=== PATIENT | female | born 1955 | race Caucasian/White ===

== ENCOUNTER 2018-06-23 11:03 | Emergency (ER) | payer OTHER ==
[~2018-06-23] VITALS: Ht 162.6 cm; Wt 55.3 kg
[~2018-06-23 11:03] MED LIST: ALBU17AE23 IH; BENZ100C18 PO; BUDE6HFA IH; DEXL60CA5 PO; DOXY100C2 PO; GABA-486 PO; GFN600TCR PO; HYDR480S10 GT; IBUP-16 PO; LEVO500T69 PO; LORA-405 PO; LORA0.5T PO; LRZ1T PO; METH4TAB PO; METO-354 PO; MTR500T PO; NAPR-243 PO; NF-ESOM40C PO; NF-XOP-HFA IH; OMEP20CA12 PO; ONDA8TAB6 PO; OXYC1TAB87 PO; PHEN37.555 PO; POLY119P PO; POLY17PO6 PO; PRD10T PO; PRD50T PO; RANI150T46 PO; SCR1T1 PO; SUCR1TAB PO; SUCR1TAB36 PO; TRM50T PO; ZOLP10TA5 PO
--- NOTE | 2018-06-23 11:29 | ED Respiratory ---
General Chief Complaint: Respiratory Problems Stated Complaint: SOA Nursing Triage Note: PT ARRIVED TO ED POV ET WAS ESCORTED BY W/C TO BED 2. PT STATES SHE HAS BEEN SOB ET HAS RECENTLY COMPLETED A LEVAQUIN RX BUT IS NOT GETTING BETTER. PT UNABLE TO WALK FROM CAR TO BUILDING WITHOUT HAVING A DIFFICULT TIME BREATHING. PT NOT IN DISTRESS AT THIS TIME Source: patient Exam Limitations: no limitations History of Present Illness Date Seen by Provider: Jun 23, 2018 Time Seen by Provider: 11:20 Initial Comments 62-year-old female who presents to the emergency room with complaints of increasing shortness of breath for the past 2 weeks. She states that laying May she started to have a viral respiratory illness has continued to progress. She reports she has been on prednisone, Ventolin inhaler, azithromycin over the course of treatment and most recently just finished a Levaquin prescription but has had no improvement. She reports worsening shortness of breath with exertion. She denies any fevers, chest pain, nausea, vomiting. She is not in any distress at this time. She reports that for the last 2 nights she has worn a friend's oxygen concentrator and seemed to have helped. She is a current smoker. Timing/Duration: getting worse, changing over time Modifying Factors: Improves With Albuterol Inhaler, Improves With Oxygen Associated Symptoms: No chest pain/soreness; cough, nasal congestion, shortness of breath Allergies and Home Medications Allergies Coded Allergies: No Known Drug Allergies (Unverified , 02/23/10) Home Medications Albuterol 17 Gm Aerosol, 2 PUFF IH Q4H PRN for SHORTNESS OF BREATH, (Reported) Lorazepam 1 Mg Tablet, 1 MG PO HS, (Reported) Patient Home Medication List Home Medication List Reviewed: Yes Review of Systems Review of Systems Constitutional: no symptoms reported, see HPI Respiratory: see HPI, cough, short of breath, wheezing All Other Systems Reviewed Negative Unless Noted: Yes Past Shyfwjx-Wshbps-Jiyvvu Hx Past Med/Social Hx: Reviewed Nursing Past Med/Soc Hx Patient Social History Alcohol Use: Denies Use Recreational Drug Use: No Smoking Status: Current Everyday Smoker Recent Foreign Travel: No Contact w/Someone Who Travel: No Recent Infectious Disease Expo: No Recent Hopitalizations: Yes (1983) Physical Abuse: No Sexual Abuse: No Mistreated: No Fear: No Immunizations Up To Date Tetanus Booster (TDap): Unknown PED Vaccines UTD: No Date of Pneumonia Vaccine: Apr 23, 2013 Date of Influenza Vaccine: Feb 02, 2015 Past Medical History Surgeries: Yes (EGD/COLONOSCOPY, WISDOM TEETH &TOP TEETH REMOVED. 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 6.0oz. [id number]; BMI Method:Stated General Appearance: WD/WN, no apparent distress HEENT: PERRL/EOMI, normal ENT inspection, TMs normal, pharynx normal Neck: non-tender, full range of motion, supple, normal inspection, carotid bruit Respiratory: chest non-tender, no respiratory distress, no accessory muscle use , wheezing (right lower lobe wheezing.) Cardiovascular: normal peripheral pulses, regular rate, rhythm, no edema, no gallop, no JVD, no murmur Gastrointestinal: normal bowel sounds, non tender, soft, no organomegaly, no pulsatile mass Extremities: normal range of motion, non-tender, normal inspection, no pedal edema, no calf tenderness, normal capillary refill Neurologic/Psychiatric: alert, normal mood/affect, oriented x 3 Skin: normal color, warm/dry Focused Exam Lactate Level 06/23/18 11:30: Lactic Acid Level 1.16 Lactic Acid Level Laboratory Tests Test 06/23/18 11:30 Lactic Acid Level 1.16 MMOL/L (0.50-2.00) Progress/Results/Core Measures Suspected Sepsis Recent Fever Within 48 Hours: No Infection Criteria Present: Suspected New Infection New/Unexplained Altered Menta: No Sepsis Screen: No Definite Risk SIRS Temperature: Pulse: 87 Respiratory Rate: 22 Laboratory Tests 06/23/18 11:30: White Blood Count 6.3 Blood Pressure 187 /70 Mean: 109 06/23/18 11:30: Lactic Acid Level 1.16 Laboratory Tests 06/23/18 11:30: Creatinine 0.60, Platelet Count 263, Total Bilirubin 0.5 Results/Orders Lab Results Laboratory Tests Test 06/23/18 11:30 Range/Units White Blood Count 6.3 4.3-11.0 10^3/uL Red Blood Count 4.70 4.35-5.85 10^6/uL Hemoglobin 14.2 11.5-16.0 G/DL Hematocrit 42 35-52 % Mean Corpuscular Volume 89 80-99 FL Mean Corpuscular Hemoglobin 30 25-34 PG Mean Corpuscular Hemoglobin Concent 34 32-36 G/DL Red Cell Distribution Width 12.6 10.0-14.5 % Platelet Count 263 130-400 10^3/uL Mean Platelet Volume 9.0 7.4-10.4 FL Neutrophils (%) (Auto) 52 42-75 % Lymphocytes (%) (Auto) 23 12-44 % Monocytes (%) (Auto) 9 0-12 % Eosinophils (%) (Auto) 16 H 0-10 % Basophils (%) (Auto) 0 0-10 % Neutrophils # (Auto) 3.3 1.8-7.8 X 10^3 Lymphocytes # (Auto) 1.5 1.0-4.0 X 10^3 Monocytes # (Auto) 0.6 0.0-1.0 X 10^3 Eosinophils # (Auto) 1.0 H 0.0-0.3 10^3/uL Basophils # (Auto) 0.0 0.0-0.1 10^3/uL Neutrophils % (Manual) 49 % Lymphocytes % (Manual) 28 % Monocytes % (Manual) 1 % Eosinophils % (Manual) 18 % Band Neutrophils 1 % Hypersegmented Neutrophils MODERATE Blood Morphology Comment NORMAL D-Dimer 0.30 0.00-0.49 UG/ML Sodium Level 139 135-145 MMOL/L Potassium Level 4.4 3.6-5.0 MMOL/L Chloride Level 105 98-107 MMOL/L Carbon Dioxide Level 23 21-32 MMOL/L Anion Gap 11 5-14 MMOL/L Blood Urea Nitrogen 11 7-18 MG/DL Creatinine 0.60 0.60-1.30 MG/DL Estimat Glomerular Filtration Rate > 60 BUN/Creatinine Ratio 18 Glucose Level 96 70-105 MG/DL Lactic Acid Level 1.16 0.50-2.00 MMOL/L Calcium Level 9.8 8.5-10.1 MG/DL Corrected Calcium 9.6 8.5-10.1 MG/DL Total Bilirubin 0.5 0.1-1.0 MG/DL Aspartate Amino Transf (AST/SGOT) 19 5-34 U/L Alanine Aminotransferase (ALT/SGPT) 15 0-55 U/L Alkaline Phosphatase 96 40-136 U/L B-Type Natriuretic Peptide 26.5 <100.0 PG/ML Total Protein 6.6 6.4-8.2 GM/DL Albumin 4.2 3.2-4.5 GM/DL My Orders Orders - JOYA LO Cbc With Automated Diff (06/23/18 11:22) Comprehensive Metabolic Panel (06/23/18 11:22) BNP (06/23/18 11:22) Blood Culture (06/23/18 11:22) Albuterol/Ipra Inhalation Soln (Duoneb I (06/23/18 11:30) Fibrin Degradation Products (06/23/18 11:22) Chest Pa/Lat (2 View) (06/23/18 11:22) Ekg Tracing (06/23/18 11:22) O2 (06/23/18 11:22) Saline Lock/Iv-Start (06/23/18 11:22) Monitor-Rhythm Ecg Trace Only (06/23/18 11:22) Svn Small Volume Nebulizer (06/23/18 11:22) Lactic Acid Analyzer (06/23/18 11:22) Manual Differential (06/23/18 11:30) Albuterol Pre-Mix Nebs (Rt) (Proventil (06/23/18 12:00) Svn Small Volume Nebulizer (06/23/18 11:49) Ipratropium 0.02% Neb Solution (Atrovent (06/23/18 12:00) Svn Small Volume Nebulizer (06/23/18 11:49) Ipratropium 0.02% Neb Solution (Atrovent (06/23/18 11:46) Albuterol Pre-Mix Nebs (Rt) (Proventil (06/23/18 11:46) Promethazine/ Codeine Syrup (Phenergan W (06/23/18 13:00) Medications Given in ED Current Medications Medications Dose Ordered Sig/Katie Route Start Time Stop Time Status Last Admin Dose Admin Albuterol/ Ipratropium 3 ml ONCE ONCE INH 06/23/18 11:30 06/23/18 11:31 DC 06/23/18 11:36 3 ML Ipratropium [place] 0.5 mg STK-MED ONCE IH 06/23/18 11:46 06/23/18 11:51 DC 06/23/18 11:56 0.5 MG Promethazine HCl/ Codeine 5 ml ONCE ONCE PO 06/23/18 13:00 06/23/18 13:01 DC 06/23/18 13:02 5 ML Vital Signs/I&O 06/23/18 06/23/18 06/23/18 11:05 11:36 11:57 Pulse 87 Resp 22 B/P (MAP) 187/70 (109) Pulse Ox 92 95 O2 Delivery Room Air Room Air Room Air Capillary Refill : Less Than 3 Seconds Blood Pressure Mean: 109 Progress Note : Time: 11:48 Progress Note I have seen and evaluated the patient. After initial breathing treatment she developed wheezing throughout all lung jimenez. Hour-long breathing treatment was ordered. Departure Impression Primary Impression: Bronchiolitis Disposition: HOME, SELF-CARE Condition: Stable/Unchanged Departure-Patient Inst. Decision time for Depature: 13:58 Referrals: JO AGUIRRE MD (PCP/Family) Primary Care Physician Patient Instructions: Acute Bronchitis, Adult (DC) Add. Discharge Instructions: Take medications as directed. Follow-up with Dr. Aguirre within 1 week for recheck. Call tomorrow morning for an appointment time. Return back to the emergency room for worsening symptoms or concerns as needed. All discharge instructions reviewed with patient and/or family. Voiced understanding. Scripts Prednisone (Prednisone) 20 Mg Tab 40 MG PO DAILY for 5 Days, #10 TAB Prov: JOYA LO 06/23/18 Albuterol Sulfate (Albuterol Sulfate) 1.25 Mg/3 Ml Vial.neb 1.25 MG INH Q4H PRN for SHORTNESS OF BREATH, #20 EACH Prov: JOYA LO 06/23/18 JOYA LO Jun 23, 2018 11:29
[2018-06-23] MEDS ORDERED: RT-ALBUTEROL/IPRATROPIUM 3 ML (DUONEB) VIAL INH ONE (11:30)
[2018-06-23 11:42] LABS: BASOPHILS % (AUTO) 0 % (0-10); EOSINOPHILS % (AUTO) 16 % (0-10); HEMATOCRIT 42 % (35-52); HEMOGLOBIN 14.2 G/DL (11.5-16.0); LYMPHOCYTES # (AUTO) 1.5 X 10^3 (1.0-4.0); LYMPHOCYTES % (AUTO) 23 % (12-44); MEAN CORPUSCULAR HEMOGLOBIN 30 PG (25-34); MEAN CORPUSCULAR HGB CONC 34 G/DL (32-36); MEAN CORPUSCULAR VOLUME 89 FL (80-99); MONOCYTES # (AUTO) 0.6 X 10^3 (0.0-1.0); MONOCYTES % (AUTO) 9 % (0-12); NEUTROPHILS # (AUTO) 3.3 X 10^3 (1.8-7.8); NEUTROPHILS % (AUTO) 52 % (42-75); PLATELET COUNT 263 10^3/uL (130-400); RED CELL DISTRIBUTION WIDTH 12.6 % (10.0-14.5); WHITE BLOOD COUNT 6.3 10^3/uL (4.3-11.0)
[2018-06-23] MEDS ORDERED: RT-IPRATROPIUM (ATROVENT) 0.5MG/2.5ML AMP IH ONE ×2 (11:46→12:00)
[2018-06-23] MEDS ORDERED: RT-ALBUTEROL SULF 2.5 MG/3 ML PRE-MIX VIAL ONE (11:46)
[2018-06-23] MEDS ORDERED: RT-ALBUTEROL SULF 2.5 MG/3 ML PRE-MIX VIAL INH SCH (12:00)
[2018-06-23 12:04] LABS: ALANINE AMINOTRANSFERASE 15 U/L (0-55); ALBUMIN 4.2 GM/DL (3.2-4.5); ALKALINE PHOSPHATASE 96 U/L (40-136); BILIRUBIN,TOTAL 0.5 MG/DL (0.1-1.0); BUN/CREATININE RATIO 18; CALCIUM 9.8 MG/DL (8.5-10.1); CARBON DIOXIDE 23 MMOL/L (21-32); CHLORIDE 105 MMOL/L (98-107); GFR ESTIMATED > 60; GLUCOSE 96 MG/DL (70-105); POTASSIUM 4.4 MMOL/L (3.6-5.0); SODIUM 139 MMOL/L (135-145); TOTAL PROTEIN 6.6 GM/DL (6.4-8.2)
[2018-06-23 12:24] LABS: BAND NEUTROPHILS 1 %; EOSINOPHILS % (MANUAL) 18 %; HYPERSEGMENTED NEUT MODERATE; LYMPHOCYTES % (MANUAL) 28 %; MONOCYTES % (MANUAL) 1 %; NEUTROPHILS % (MANUAL) 49 %; RBC MORPH NORMAL
[2018-06-23] MEDS ORDERED: PROMETHAZINE/ CODEINE SYRUP 5 ML UDC PO ONE (13:00)
--- NOTE | 2018-06-23 13:23 | Diagnostic Imaging Report ---
EXAMINATION: Chest, PA and lateral views INDICATION: Cough, chest tightness, and shortness of breath. COMPARISON: Multiple priors, most recently performed on 10/24/2014. FINDINGS: The lungs are clear and the pulmonary vasculature is normal. No pneumothorax or pleural effusion. The cardio mediastinal silhouette is normal. No acute osseous abnormality. Bone anchors are demonstrated in the left humeral head. IMPRESSION: No acute chest disease. No significant change from prior. Dictated by: Dictated on workstation # [id number]
[2018-06-23] MEDS ORDERED: ALBU1.25 INH (14:01)
[2018-06-23] MEDS ORDERED: PRD20T PO (14:01)
[2018-06-23 14:07] VITALS: BP 159/87
== END 2018-06-23 14:08 | disposition home or self-care (01) ==
LOC: EDUNIT# 11:03 → ER 11:05
DX: J44.0 Chronic obstructive pulmonary disease with (acute) lower respiratory infection (principal); J21.9 Acute bronchiolitis, unspecified; F17.200 Nicotine dependence, unspecified, uncomplicated; F41.9 Anxiety disorder, unspecified; Z85.828 Personal history of other malignant neoplasm of skin; Z87.01 Personal history of pneumonia (recurrent); Z79.51 Long term (current) use of inhaled steroids; Z90.49 Acquired absence of other specified parts of digestive tract; Z90.710 Acquired absence of both cervix and uterus; Z90.89 Acquired absence of other organs; Z98.51 Tubal ligation status; Z86.718 Personal history of other venous thrombosis and embolism; Z80.3 Family history of malignant neoplasm of breast
CPT/HCPCS: 36415; 71046; 80053; 83605; 83880; 85007; 85027; 85379; 87040; 93005; 94640

== ENCOUNTER 2018-07-08 07:42 | Emergency (ER) | payer OTHER ==
[~2018-07-08] VITALS: Ht 162.6 cm; Wt 55.5 kg
[~2018-07-08 07:42] MED LIST changes: +ALBU1.25 INH; +PRD20T PO
--- OUTSIDE RECORDS SUMMARY | 2018-07-08 07:47 | XMS REPORT ---
Author Author JO CHANDRA Organization [facility] [place] Address [address] [place] [address] Care Team Providers Care Client Solutions Manager Name Role Phone JO CHANDRA Unavailable PROBLEMS Type Condition ICD9-CM Code [id number] Code Onset Dates Condition Status SNOMED Code Problem Anxiety F41.9 Active 96706368 Problem Hypoglycemia E16.2 Active 038562143 Problem Low blood sugar in diabetes E11.649 Active 483045186 ALLERGIES No Information ENCOUNTERS Encounter Location Date Diagnosis [place] [id number] [place] [address] Mar, [facility] [place] [address] [address] Mar, Anxiety F41.9 [facility] [place] [id number] [place] [address] Jan, Anxiety F41.9 [place] [id number] [place] [address] Dec, Hypoglycemia E16.2 and Anxiety F41.9 [facility] [place] [id number] [place] [address] Nov, Anxiety F41.9 [facility] [place] [id number] [place] [address] Oct, Anxiety F41.9 [facility] [place] [id number] [place] [address] Aug, Anxiety F41.9 [facility] [place] [id number] [place] [address] 14 Jun, 2017 Acute right hip pain M25.551 [facility] [place] [id number] [address] 14 Jun, 2017 Acute right hip pain M25.551 [facility] [place] [id number] [address] 10 May, 2017 Anxiety F41.9 and Hypoglycemia E16.2 [facility] [place] [id number] [address] Apr, [facility] [place] [id number] [address] Mar, [facility] [place] [id number] [address] Mar, [facility] [place] [address] [address] Mar, [facility] [place] [id number] [address] Mar, Screening for breast cancer Z12.31 [facility] [place] [id number] [address] Feb, [facility] [place] [id number], [place] [address] Feb, [facility] [place] [id number], [place] [address] Feb, [facility] [place] [id number] [address] Dec, [facility] [place] [id number], [place] [address] Dec, Hypoglycemia E16.2 [facility] [place] [id number] [address] Dec, Hypoglycemia E16.2 [facility] [place] [id number], [place] [address] Dec, [facility] [place] [id number], [place] [address] Nov, [facility] [place] [id number] [address] Nov, [facility] [place] [id number] [address] Nov, [facility] [place] [id number] [address] Oct, [facility] [place] [id number] [address] September, [facility] [place] [id number] [address] September, [facility] [place] [id number] [address] September, Hypoglycemia E16.2 and Weight loss R63.4 [facility] [place] [id number] [address] Aug, [facility] [place] [id number] [address] Jul, [facility] [place] [id number] [address] Jun, [facility] [place] [id number] [address] Jun, Hypoglycemia E16.2 [facility] [place] [id number] [address] May, [facility] [place] [id number] [address] May, [facility] [address] [place] [address] Apr, [facility] [place] [id number] [address] Apr, [facility] [place] [id number] [address] Mar, [facility] [place] [address] [facility] [id number] [address] Mar, Dizziness R42 and Low blood sugar E16.2 [facility] [place] [id number] [address] Mar, [facility] [place] [id number] [address] Mar, Dizziness R42 [facility] [place] [id number], [place] [address] Mar, Dizziness R42 and Low blood sugar E16.2 IMMUNIZATIONS No Known Immunizations SOCIAL HISTORY Never Assessed REASON FOR VISIT Controlled Med Refill PLAN OF CARE VITAL SIGNS MEDICATIONS Medication Instructions Dosage Frequency Start Date End Date Duration Status Ativan 1 MG Orally Once a day 1 tablet at bedtime as needed 24h 28 days Active RESULTS No Results PROCEDURES No Known procedures INSTRUCTIONS MEDICATIONS ADMINISTERED No Known Medications MEDICAL (GENERAL) HISTORY Type Description Date Medical History spastic colon Medical History Anxiety Surgical History Hysterectomy at 29 years of age Surgical History oopherectomy 2001 Surgical History shoulder surgery 2005 Surgical History Hiatal Hernia 2016 Surgical History cholecystectomy 2016 Surgical History Tubal ligation Hospitalization History with child and surgeries listed above. Hospitalization History Hernia issues
--- OUTSIDE RECORDS SUMMARY | 2018-07-08 07:47 | XMS REPORT ---
Author Author JO CHANDRA Organization [facility] Address [address] [place] [address] Care Team Providers Care Resin Filterer Name Role Phone JO CHANDRA Unavailable PROBLEMS Type Condition ICD9-CM Code ZVU18-HP Code Onset Dates Condition Status SNOMED Code Problem Anxiety F41.9 Active 89366914 Problem Hypoglycemia E16.2 Active 917120491 Problem Low blood sugar in diabetes E11.649 Active 882196134 ALLERGIES No Information ENCOUNTERS Encounter Location Date Diagnosis [place] [id number] [place] [address] Mar, [facility] [address] [address] Mar, Anxiety F41.9 [facility] [id number] [place] [address]- [address] Jan, Anxiety F41.9 [place] [id number] [place] [address]- [address] Dec, Hypoglycemia E16.2 and Anxiety F41.9 [facility] [id number] [place] [address]- [address] Nov, Anxiety F41.9 [facility] [id number] [place] [address]- [address] Oct, Anxiety F41.9 [facility] [id number] [place] [address]- [address] Aug, Anxiety F41.9 [facility] [id number] [place] [address]- [address] 14 Jun, 2017 Acute right hip pain M25.551 [facility] [id number] [address] 14 Jun, 2017 Acute right hip pain M25.551 [facility] [id number] [place] [address]- [address] 10 May, 2017 Anxiety F41.9 and Hypoglycemia E16.2 [facility] [id number] [place] [address]- [address] Apr, [facility] [address], [place] [address]- [address] Mar, [facility] [id number] [place] [address]- 39[address] Mar, [facility] [address], [place] [address]- [address] Mar, [facility] [address], [place] [address]- [address] Mar, Screening for breast cancer Z12.31 [facility] [address], [place] [address]- [address] Feb, [facility] [address], [place] [address]- 79[address] Feb, [facility] [address], [place] [address]- [address] Feb, [facility] [address], [place] [address]- [address] Dec, [facility] [address], [place] [address]- 84[address] Dec, Hypoglycemia E16.2 [facility] [address], [place] [address]- 8[address] Dec, Hypoglycemia E16.2 [facility] [address], [place] [address]- [address] Dec, [facility] [address], [place] [address]- [address] Nov, [facility] [id number] [place] [address]- [address] Nov, [facility] [id number] [place] [address]- 16[address] Nov, [facility] [id number] [place] [address]- 384[address] Oct, [facility] [id number] [place] [address]- 6[address] September, [facility] [id number] [place] [address]- [address] September, [facility] [id number] [place] [address]- 8070 September, Hypoglycemia E16.2 and Weight loss R63.4 [facility] [id number] [place] [address]- [address] Aug, [facility] [id number] [place] [address]- 9[address] Jul, [facility] [id number] [place] [address]- 8598 Jun, [facility] [id number] [place] [address]- 8[address] Jun, Hypoglycemia E16.2 [facility] [id number] [place] [address]- 125[address] May, [facility] [id number] [place] [address]- [address] May, [facility] [address] [place] [address] Apr, [facility] [id number] [place] [address]- [address] Apr, [facility] [id number], [place] [address]- [address] Mar, [facility] [address] [facility] [id number] [address] Mar, Dizziness R42 and Low blood sugar E16.2 [facility] [id number], [place] [address]- [address] Mar, [facility] [id number] [address]- [address] Mar, Dizziness R42 [facility] [address], [place] [address]- [address] Mar, Dizziness R42 and Low blood sugar E16.2 IMMUNIZATIONS No Known Immunizations SOCIAL HISTORY Never Assessed REASON FOR VISIT Medication refill request PLAN OF CARE VITAL SIGNS MEDICATIONS Unknown Medications RESULTS No Results PROCEDURES No Known procedures [...]
--- OUTSIDE RECORDS SUMMARY | 2018-07-08 07:47 | XMS REPORT ---
Author Author JO CHANDRA Organization [facility] [place] Address [address] [place] [address] Care Team Providers Care Cut In Worker Name Role Phone JO CHANDRA Unavailable PROBLEMS Type Condition ICD9-CM Code GSR87-WF Code Onset Dates Condition Status SNOMED Code Problem Anxiety F41.9 Active 84847587 Problem Hypoglycemia E16.2 Active 565616449 Problem Low blood sugar in diabetes E11.649 Active 091718242 ALLERGIES No Information ENCOUNTERS Encounter Location Date Diagnosis [place] [id number] [address] Jan, Anxiety F41.9 [facility] [place] [address] [address]- 2009 Dec, Hypoglycemia E16.2 and Anxiety F41.9 [facility] [place] [address] 47294- 9195 Nov, Anxiety F41.9 [facility] [place] [address] [place] [id number] [place] [address] 96462- 1630 Oct, Anxiety F41.9 [facility] [place] [address] [place] [id number] [place] [address] 16748- 8942 Aug, Anxiety F41.9 [facility] [place] [address] [place] [id number] [place] [address] 14823- 3110 14 Jun, 2017 Acute right hip pain M25.551 [facility] [place] [address] [place] [id number] [place] [address] 36247- 4078 14 Jun, 2017 Acute right hip pain M25.551 [facility] [place] [address] [id number] [place] [address] 86342- 2035 May, Anxiety F41.9 and Hypoglycemia E16.2 [facility] [address] [facility] [id number] [place] [address] 2760 Apr, [facility] [address] [place] [address]- 9866 Mar, [facility] [address] [place] [address] [id number] [place] [address]- 9592 Mar, [facility] [address] [facility] [id number] [place] [address]- 5478 Mar, [facility] [address] [facility] [id number] [place] [address]- 8702 Mar, Screening for breast cancer Z12.31 [facility] [address] [id number] [place] [address]- 0136 Feb, [facility] [address] [place] [address]- 4229 Feb, [facility] [address] [place] [address]- 9181 Feb, [facility] [address] [place] [address]- 6572 Dec, [facility] [address] [place] [address]- 9640 Dec, Hypoglycemia E16.2 [facility] [address] [place] [address]- 7725 Dec, Hypoglycemia E16.2 [facility] [address] [facility] [id number] [place] [address]- 0847 Dec, [facility] [address] [place] [id number] [place] [address]- 2034 Nov, [facility] [place] [facility] [address] [facility] [id number] [place] [address]- 9906 Nov, [facility] [address] [place] [id number] [place] [address]- 0911 Nov, [facility] [place] [address]00565[address] [address]- 2568 Oct, [facility] [place] [address] [place] [id number] [place] [address] 37626- 5010 September, [facility] [place] [address] [place] [id number] [place] [address] 97564- 6928 September, [facility] [place] [address] [place] [id number] [place] [address] 30504- 3211 September, Hypoglycemia E16.2 and Weight loss R63.4 [facility] [place] [address] [place] [id number] [place] [address] 62971- 0353 Aug, [facility] [place] [address] [place] [id number] [place] [address] 12916- 9942 Jul, [facility] [place] [address] [place] [id number] [place] [address] 45779- 8122 Jun, [facility] [place] [address] [place] [id number] [place] [address] 61927- 4373 Jun, Hypoglycemia E16.2 [facility] [place] [address] [place] [id number] [place] [address] 04336- 3151 May, [facility] [place] [address] [place] [address] 20510- 2116 May, [facility] [address] [place] [address] Apr, [facility] [place] [address]00565100[place] [address]- 8756 Apr, [facility] [place] [address] [place] [address] 65479- 7996 Mar, [facility] [place] [address] [place] [address] 46767- 0768 Mar, Dizziness R42 and Low blood sugar E16.2 [facility] [place] [id number] [place] [address] 58542- 3846 Mar, [facility] [place] [address] [facility] [id number] [place] [address]- 9596 Mar, Dizziness R42 [facility] [place] [address] [facility] [id number] [place] [address]- 4056 Mar, Dizziness R42 and Low blood sugar [...]
--- OUTSIDE RECORDS SUMMARY | 2018-07-08 07:47 | XMS REPORT ---
Author Author JO CHANDRA Organization [facility] Address [address] [place] [address] Care Team Providers Care Wine Consultant Name Role Phone JO CHANDRA Unavailable PROBLEMS Type Condition ICD9-CM Code QDQ20-OT Code Onset Dates Condition Status SNOMED Code Problem Anxiety F41.9 Active 20114029 Problem Hypoglycemia E16.2 Active 066090017 Problem Low blood sugar in diabetes E11.649 Active 107247391 ALLERGIES No Information ENCOUNTERS Encounter Location Date Diagnosis [place] [address] [address]- 2[address] May, [facility] [address] 17443- 9483 Apr, Anxiety F41.9 [facility] [address] 91386- 2096 Mar, [facility] [address] 7[address]66- 2828 Mar, [place] [address] 74214- 5139 Mar, Anxiety F41.9 [facility] [address] 44726- 1630 14 Jan, 2018 Anxiety F41.9 [facility] [address] 18971- 8299 Dec, Hypoglycemia E16.2 and Anxiety F41.9 [facility] [address] 67036- 3052 Nov, Anxiety F41.9 [facility] [address] 53689- 5948 Oct, Anxiety F41.9 [facility] [address] [place] [id number] [place] [address] 07570 2546 Aug, Anxiety F41.9 [facility] [address] [place] [id number] [place] [address] 44508 2546 14 Jun, 2017 Acute right hip pain M25.551 [facility] [address] [place] [id number] [place] [address] 57378 2546 14 Jun, 2017 Acute right hip pain M25.551 [facility] [address] [place] [address] 13802- 2546 May, Anxiety F41.9 and Hypoglycemia E16.2 [facility] [address] [place] [id number] [place] [address] 77673 2546 Apr, [facility] [address] [place] [id number] [place] [address] 68038- 0816 Mar, [facility] [address] [place] [id number] [place] [address] 39325 2547 Mar, [facility] [address] [place] [id number] [place] [address] 05561- 4436 Mar, [facility] [address] [place] [id number] [place] [address] 50817 2546 Mar, Screening for breast cancer Z12.31 [facility] [address] [place] [id number] [place] [address] 09634 2546 Feb, [facility] [address] [place] [id number] [place] [address] 65422 2546 Feb, [facility] [address] [place] [id number] [place] [address] 68544- 2556 Feb, [facility] [address] [place] [id number] [place] [address] 73260 2546 Dec, [facility] [address] [place] [id number] [place] [address] 81623- 1509 Dec, Hypoglycemia E16.2 [facility] [address] [facility] [id number] [place] [address]- 9040 Dec, Hypoglycemia E16.2 [facility] [address] [facility] [id number] [place] [address]- 2590 Dec, [facility] [address] [facility] [id number] [place] [address]- 7773 Nov, [facility] [address] [facility] [id number] [place] [address]- 4474 Nov, [facility] [address] [facility] [id number] [place] [address]- 1296 Nov, [facility] [address] [place] [id number] [place] [address]- 8706 Oct, [facility] [address] [place] [address]- 3817 September, [facility] [address] [facility] [id number] [place] [address]- 5661 September, [facility] [address] [place] [id number] [place] [address]- 5796 September, Hypoglycemia E16.2 and Weight loss R63.4 [facility] [address] [place] [id number] [place] [address]- 3046 Aug, [facility] [address] [place] [address]- 1066 Jul, [facility] [address] [facility] [id number] [place] [address]- 9431 Jun, [facility] [address] [place] [id number] [place] [address]- 0528 Jun, Hypoglycemia E16.2 [facility] [address] [facility] [id number] [place] [address]- 4773 May, [facility] [address] [place] [address]- 3531 May, [facility] [address] [place] [address] Apr, [facility] [address] [place] [address] 20135- 1890 Apr, [facility] [address] [place] [address] 44959- 4616 Mar, [facility] [address] [place] [id number] [place] [address] 53319- 8087 Mar, Dizziness R42 and Low blood sugar E16.2 [place] [address] [place] [address] 27666- 2538 Mar, [facility] [address] [place] [address] 27466- 6017 Mar, Dizziness R42 [place] [address] [place] [address] 52556- 1103 Mar, Dizziness R42 and Low blood sugar [...]
--- OUTSIDE RECORDS SUMMARY | 2018-07-08 07:47 | XMS REPORT ---
Author Author JO CHANDRA Organization [facility] Address [address] [place] [address] Care Team Providers Care Laborer Shipyard Name Role Phone OJ CHANDRA Unavailable PROBLEMS Type Condition ICD9-CM Code BZK16-OC Code Onset Dates Condition Status SNOMED Code Problem Anxiety F41.9 Active 05182784 Problem Hypoglycemia E16.2 Active 939531514 Problem Low blood sugar in diabetes E11.649 Active 908692813 ALLERGIES No Information ENCOUNTERS Encounter Location Date Diagnosis [place] [address] [place] [id number] [place] [address] 51487- 5250 Dec, Hypoglycemia E16.2 and Anxiety F41.9 [facility] [address] [place] [id number] [place] [address] 54308- 1589 Nov, Anxiety F41.9 [facility] [address] [place] [id number] [place] [address] 55837- 9770 Oct, Anxiety F41.9 [facility] [address] [place] [id number] [place] [address] 25131- 9565 Aug, Anxiety F41.9 [facility] [address] [place] [id number] [place] [address] 04898- 6882 14 Jun, 2017 Acute right hip pain M25.551 [facility] [address] [place] [id number] [place] [address] 79738- 5820 14 Jun, 2017 Acute right hip pain M25.551 [facility] [address] [place] [id number] [place] [address] 80972- 6610 May, Anxiety F41.9 and Hypoglycemia E16.2 [facility] [address] [place] [id number] [place] [address] 68613- 9680 Apr, [facility] [address] [id number] [place] [address]- 7692 Mar, [facility] [place] [facility] [address] [id number] [place] 6013 Mar, [facility] [place] [facility] [address] [id number] [place] [address]- 9989 Mar, [facility] [place] [facility] [address] [facility] [id number] [place] 4172 Mar, Screening for breast cancer Z12.31 [facility] [place] [facility] [address] [id number] [place] [address]- 4197 Feb, [facility] [place] [facility] [address] [id number] [place] [address]- 9882 Feb, [facility] [place] [facility] [address] [facility] 2] [id number] [place] [address]- 1628 Feb, [facility] [place] [facility] [address] [facility] 2] [id number] [place] [address]- 3268 Dec, [facility] [place] [facility] [address] [id number] [place] [address]- 1219 Dec, Hypoglycemia E16.2 [facility] [place] [facility] [address] [facility] 2[facility] [id number] [place] [address]- 6524 Dec, Hypoglycemia E16.2 [facility] [place] [facility] [address] [id number] [place] [address]- 6064 Dec, [facility] [place] [facility] [address] [id number] [place] [address]- 1441 Nov, [facility] [place] [facility] [address] [id number] [place] 0662 Nov, [facility] [place] [facility] [address] [id number] [place] 8636 Nov, [facility] [place] [facility] [address] [facility] 2] [id number] [place]- 4489 Oct, [facility] [place] [facility] [address] [place] [id number] [address]- 5493 September, [facility] [address] [place] [id number] [place] [address] 13329- 3250 September, [facility] [address] [place] [id number] [place] [address] 10648- 0926 September, Hypoglycemia E16.2 and Weight loss R63.4 [facility] [address] [place] [id number] [place] [address] 07127- 2258 Aug, [facility] [address] [id number] [place] [address] 32510- 5743 Jul, [facility] [address] [place] [place] [id number] [place] [address] 80280- 0000 Jun, [facility] [address] [place] [id number] [place] [address] 20789- 7360 Jun, Hypoglycemia E16.2 [facility] [address] [id number] [place] [address] 53464- 3804 May, [facility] [address] [place] [id number] [place] [address] 69683- 0069 May, [facility] [address] [place] [address] Apr, [facility] [address] [place] [address] 02715- 6667 Apr, [facility] [address] [place] [address] 95507- 6357 Mar, [facility] [address] [place] [address] 24969- 9346 Mar, Dizziness R42 and Low blood sugar E16.2 [facility] [address] [address]- 3810 Mar, [facility] [address] [place] [address] 74583- 7118 Mar, Dizziness R42 [facility] [address] [facility] 2] [id number] [place] [address]- 1999 Mar, Dizziness R42 and Low blood sugar [...]
--- OUTSIDE RECORDS SUMMARY | 2018-07-08 07:47 | XMS REPORT ---
Author Author JO CHANDRA Organization [facility] Address [address] [place] [address] Care Team Providers Care Rubber Stamp Maker Name Role Phone JO CHANDRA Unavailable PROBLEMS Type Condition ICD9-CM Code FVA35-NN Code Onset Dates Condition Status SNOMED Code Problem Anxiety F41.9 Active 59218010 Problem Hypoglycemia E16.2 Active 395789965 Problem Low blood sugar in diabetes E11.649 Active 133893773 ALLERGIES No Information ENCOUNTERS Encounter Location Date Diagnosis [place] [address] [place] [id number] [place] [address] 06811- 3372 Dec, Hypoglycemia E16.2 and Anxiety F41.9 [facility] [address] [place] [id number] [place] [address] 74521- 4063 Nov, Anxiety F41.9 [facility] [address] [place] [id number] [place] [address] 28247- 1447 Oct, Anxiety F41.9 [facility] [address] [id number] [place] [address] 67025- 4478 Aug, Anxiety F41.9 [facility] [address] [place] [address] [id number] [place] [address] 85253- 2265 14 Jun, 2017 Acute right hip pain M25.551 [facility] [address] [place] [id number] [place] [address] 40669- 9706 14 Jun, 2017 Acute right hip pain M25.551 [facility] [address] [place] [address] [id number] [place] [address] 61706- 6605 May, Anxiety F41.9 and Hypoglycemia E16.2 [facility] [address] [id number] [place] [address] 90716- 4333 Apr, [facility] [address] [id number] [place] [address]- 0258 Mar, [facility] [place] [facility] [address] [id number] [place] 9495 Mar, [facility] [place] [facility] [address] [id number] [place] [address]- 9879 Mar, [facility] [place] [facility] [address] [facility] [id number] [place] 1987 Mar, Screening for breast cancer Z12.31 [facility] [place] [facility] [address] [id number] [place] [address]- 3153 Feb, [facility] [place] [facility] [address] [id number] [place] [address]- 8618 Feb, [facility] [place] [facility] [address] [facility] [id number] [place] [address]- 1067 Feb, [facility] [place] [facility] [address] [facility] [id number] [place] [address]- 1390 Dec, [facility] [place] [facility] [address] [id number] [place] [address]- 1330 Dec, Hypoglycemia E16.2 [facility] [place] [facility] [address] [facility] [id number] [place] [address]- 6017 Dec, Hypoglycemia E16.2 [facility] [place] [facility] [address] [id number] [place] [address]- 5418 Dec, [facility] [place] [facility] [address] [id number] [place] [address]- 4950 Nov, [facility] [place] [facility] [address] [id number] [place] 5321 Nov, [facility] [place] [facility] [address] [id number] [place] 7519 Nov, [facility] [place] [facility] [address] [facility] [id number] [place] 6580 Oct, [facility] [place] [facility] [address] [address] [id number] [address] September, [facility] [id number] [place] [address]851- 6858 September, [facility] [id number] [place] [address] 67341- 8189 September, Hypoglycemia E16.2 and Weight loss R63.4 [facility] [id number] [place] [address] 98342- 4065 Aug, [facility] [id number] [place] [address] 60228- 8978 Jul, [facility] [id number] [place] [address] 49279- 9608 Jun, [facility] [id number] [place] [address] 05791- 7371 Jun, Hypoglycemia E16.2 [facility] [id number] [place] [address] 79032- 0445 May, [facility] [id number] [place] [address] 11282- 7701 May, [facility] [address] [place] [address] Apr, [facility] [id number] [place] [address] 59254- 9659 Apr, [facility] [id number] [place] [address] 55148- 4189 Mar, [facility] [id number] [place] [address] 40425- 8768 Mar, Dizziness R42 and Low blood sugar E16.2 [facility] [id number], [place] [address] Mar, [facility] [id number] [place] [address] 70428- 0531 Mar, Dizziness R42 [facility] [address] [facility] [id number] [place] [address] Mar, Dizziness R42 and Low blood sugar E16.2 IMMUNIZATIONS No Known Immunizations SOCIAL HISTORY Never Assessed REASON FOR VISIT Medication refill request PLAN OF CARE VITAL SIGNS MEDICATIONS Medication [...]
--- OUTSIDE RECORDS SUMMARY | 2018-07-08 07:47 | XMS REPORT ---
Author Author JO CHANDRA Organization [facility] [place] [facility] Address [address] [place] [address] Care Team Providers Care Mutuel Machine Operator Name Role Phone JO CHANDRA Unavailable PROBLEMS Type Condition ICD9-CM Code UAR13-MQ Code Onset Dates Condition Status SNOMED Code Problem Anxiety F41.9 Active 59354265 Problem Hypoglycemia E16.2 Active 548550193 Problem Low blood sugar in diabetes E11.649 Active 804565447 ALLERGIES No Known Allergies ENCOUNTERS Encounter Location Date Diagnosis [place] [address] [address] Jan, Anxiety F41.9 [facility] [facility] [address] [address]- [address] Dec, Hypoglycemia E16.2 and Anxiety F41.9 [facility] [place] [facility] [address] [address]- 5827 Nov, Anxiety F41.9 [facility] [place] [facility] [address] [place] [id number] [place] [address] 35238- 2320 Oct, Anxiety F41.9 [facility] [place] [facility] [address] [address]- 1150 Aug, Anxiety F41.9 [facility] [place] [facility] [address] [place] [id number] [place] [address] 35473- 6047 14 Jun, 2017 Acute right hip pain M25.551 [facility] [place] [facility] [address] [id number] [place] [address] 41514- 9417 14 Jun, 2017 Acute right hip pain M25.551 [facility] [place] [facility] [address] [id number] [place] [address] 89334- 3644 May, Anxiety F41.9 and Hypoglycemia E16.2 [facility] [place] [facility] [id number] [place] [address] 6076 Apr, [facility] [place] [facility] [id number] [place] [address] 6696 Mar, [facility] [place] [facility] [id number] [address]- 6289 Mar, [facility] [place] [facility] [address] [place] [id number] [place] [address]- 5892 Mar, [facility] [place] [facility] [id number] [place] [address]- 0808 Mar, Screening for breast cancer Z12.31 [facility] [place] [facility] [id number] [place] [address] 7059 Feb, [facility] [place] [facility] [address] [place] [id number] [place] [address], [place] [address]- 4550 Feb, [facility] [place] [facility] [id number] [address]- 2933 Feb, [facility] [place] [facility] [id number] [place] [address]- 1555 Dec, [facility] [place] [facility] [id number] [address] 3321 Dec, Hypoglycemia E16.2 [facility] [place] [facility] [id number] [address]- 3667 Dec, Hypoglycemia E16.2 [facility] [place] [facility] [id number] [address] 53[address] Dec, [facility] [id number] [place] [address]- 7840 Nov, [facility] [id number] [place] [address]- 7133 Nov, [facility] [place] [facility] [id number] [address]- 9756 Nov, [facility] [place] [facility] [id number] [address]- 1355 Oct, [facility] [place] [facility] [address] [id number] [place] [address] 98733- 6705 September, [facility] [place] [facility] [address] [id number] [place] [address] 48673- 6989 September, [facility] [place] [facility] [address] [id number] [place] [address] 86878- 5767 September, Hypoglycemia E16.2 and Weight loss R63.4 [facility] [place] [facility] [address] [id number] [place] [address] 90125- 8739 Aug, [facility] [place] [facility] [address] [id number] [place] [address] 84110- 6894 Jul, [facility] [place] [facility] [address] [id number] [place] [address] 88822- 9359 Jun, [facility] [place] [facility] [address] [id number] [place] [address] 43535- 8217 Jun, Hypoglycemia E16.2 [facility] [place] [facility] [address] [id number] [place] [address] 66355- 9523 May, [facility] [place] [facility] [id number] [address]- 8446 May, [facility] [address] [place] [address] Apr, [facility] [place] [facility] [id number] [address]- 3036 Apr, [facility] [place] [facility] [id number] [place] [address] 44983- 1853 Mar, [facility] [place] [facility] [id number] [place] [address] 29093- 2936 Mar, Dizziness R42 and Low blood sugar E16.2 [facility] [facility] [id number] [place] [address] 40990- 3463 Mar, [facility] [facility] [address] [facility] [id number] [place] [address]- 8825 Mar, Dizziness R42 [facility] [facility] [address] [facility] [id number] [place] [address]- 4366 Mar, Dizziness R42 and Low blood sugar E16.2 IMMUNIZATIONS No Known Immunizations SOCIAL HISTORY Never Assessed REASON FOR VISIT Anxiety--tcuppettHORACIO PLAN OF CARE Activity Details Follow Up 3 Months with Carla yousif start Reason: VITAL SIGNS Height 64 in 2017-12-17 Weight 118.6 lbs 2017-12-17 Temperature 98.1 degrees Fahrenheit 2017-12-17 Heart Rate 70 bpm 2017-12-17 Respiratory Rate 18 2017-12-17 BMI 20.36 kg/m2 2017-12-17 Blood pressure systolic 100 mmHg 2017-12-17 Blood pressure diastolic 68 mmHg 2017-12-17 MEDICATIONS Medication Instructions Dosage Frequency Start Date End Date Duration Status Fluoxetine HCl 20 mg Orally Once a day 1 half tab for seven days then a full tablet 24h Dec, 30 day(s) Active Ativan 1 MG Orally Once a day 1 tablet at bedtime as needed 24h 28 days Active Symbicort 160-4.5 MCG/ACT Inhalation Twice a day 2 puffs prn 12h Not-Taking Fluoxetine HCl 20 mg Orally Once a day 1/2 half tablet x7 days and then 1 full tablet. 24h Dec, 30 day(s) Not-Taking RESULTS No Results PROCEDURES No Known procedures [...]
--- OUTSIDE RECORDS SUMMARY | 2018-07-08 07:47 | XMS REPORT ---
Author Author JO CHANDRA Organization [facility] Address [address] [place] [address] Care Team Providers Care Restaurant Area Director Name Role Phone JO CHANDRA Unavailable PROBLEMS Type Condition ICD9-CM Code [id number] Code Onset Dates Condition Status SNOMED Code Problem Anxiety F41.9 Active 01289779 Problem Hypoglycemia E16.2 Active 228172850 Problem Low blood sugar in diabetes E11.649 Active 638725002 ALLERGIES No Information ENCOUNTERS Encounter Location Date Diagnosis [place] [id number] [address]- 20[address] Mar, [facility] [address] 7[address]- 9331 Mar, [facility] [address] 80604- 5541 Mar, Anxiety F41.9 [facility] [address] 16441- 4831 Jan, Anxiety F41.9 [facility] [address] [place] [id number] [place] [address] 96211- 9463 Dec, Hypoglycemia E16.2 and Anxiety F41.9 [facility] [address] [place] [id number] [place] [address] 70852- 7398 Nov, Anxiety F41.9 [facility] [address] 33710- 6581 Oct, Anxiety F41.9 [facility] [address] [place] [id number] [place] [address] 53758- 4392 Aug, Anxiety F41.9 [facility] [address] 69356- 4902 14 Jun, 2017 Acute right hip pain M25.551 [facility] [address] [place] [id number] [address]- 9236 14 Jun, 2017 Acute right hip pain M25.551 [facility] [address] [place] [id number] [address]- 8372 10 May, 2017 Anxiety F41.9 and Hypoglycemia E16.2 [facility] [address]005[address] [address]- 5282 Apr, [facility] [id number] [place] [address] 33805- 3012 Mar, [facility] [id number] [place] [address] 46864- 0811 Mar, [facility] [id number] [place] [address] 99686- 3926 Mar, [facility] [id number] [place] [address] 94563- 7576 Mar, Screening for breast cancer Z12.31 [facility] [id number] [address]- 3972 Feb, [facility] [id number] [address]- 8498 Feb, [facility] [id number] [address]- 7528 Feb, [facility] [id number] [address]- 8127 Dec, [facility] [id number] [address]- 4215 Dec, Hypoglycemia E16.2 [facility] [id number] [address]- 2540 Dec, Hypoglycemia E16.2 [facility] [id number] [address]- 4933 Dec, [facility] [address] [facility] [id number] [place] [address]- 8800 Nov, [facility] [address] [facility] [id number] [place] [address]- 4798 Nov, [facility] [address] [place] [id number] [address]- 8291 Nov, [facility] [address] [facility] [id number] [place] [address]- 7547 Oct, [facility] [address] [facility] [id number] [place] [address]- 4352 September, [facility] [id number] [place] [address]- 1874 September, [facility] [id number] [place] [address]- 8627 September, Hypoglycemia E16.2 and Weight loss R63.4 [facility] [address] [place] [id number] [place] [address]- 5261 Aug, [facility] [id number] [place] [address]- 4651 Jul, [facility] [id number] [place] [address]- 7828 Jun, [facility] [id number] [place] [address]- 5006 Jun, Hypoglycemia E16.2 [facility] [address] [place] [id number] [place] [address]- 4591 May, [facility] [id number] [place] [address]- 1538 May, [facility] [address] [place] [facility] [address] Apr, [facility] [address] [place] [id number] [address]- 2922 Apr, [facility] [address] [place] [id number] [address]- 5244 Mar, [facility] [address] [address]- 1450 Mar, Dizziness R42 and Low blood sugar E16.2 [facility] [address] [address]- 6686 Mar, [facility] [id number] [address]- 5898 Mar, Dizziness R42 [facility] [address] [address]- 2088 Mar, Dizziness R42 and Low blood sugar E16.2 IMMUNIZATIONS No Known Immunizations SOCIAL HISTORY Never Assessed REASON FOR VISIT Routine nurse call PLAN OF CARE VITAL SIGNS MEDICATIONS Unknown [...]
--- OUTSIDE RECORDS SUMMARY | 2018-07-08 07:48 | XMS REPORT ---
Author Author JO CHANDRA Organization [facility] Address [address] [place] [address] Care Team Providers Care Blocker Hand Name Role Phone JO CHANDRA Unavailable PROBLEMS Type Condition ICD9-CM Code QVW44-VD Code Onset Dates Condition Status SNOMED Code Problem Anxiety F41.9 Active 64989074 Problem Hypoglycemia E16.2 Active 246566017 Problem Low blood sugar in diabetes E11.649 Active 984017915 ALLERGIES No Information ENCOUNTERS Encounter Location Date Diagnosis [place] [address] [address]43- 6056 Aug, Anxiety F41.9 [facility] [address] 39821- 2699 14 Jun, 2017 Acute right hip pain M25.551 [facility] [address] 75456- 4509 14 Jun, 2017 Acute right hip pain M25.551 [facility] [address] 12743- 0014 10 May, 2017 Anxiety F41.9 and Hypoglycemia E16.2 [facility] [address] 30693- 1719 Apr, [facility] [address] 31293- 7820 Mar, [facility] [address] 76997- 0019 Mar, [place] [address] 78245- 6055 Mar, [facility] [address] 46803- 3620 Mar, Screening for breast cancer Z12.31 [facility] [address] [place] [id number] [place] [address]- 4157 Feb, [facility] [address] [place] [id number] [place] [address]- 3559 Feb, [facility] [id number] [place] [address]- 3034 Feb, [facility] [address] [facility] [id number] [place] [address]- 8541 Dec, [facility] [id number] [place] [address], [place] [address]- 2103 Dec, Hypoglycemia E16.2 [facility] [address] [place] [id number] [place] [address]- 4392 Dec, Hypoglycemia E16.2 [facility] [id number] [place] [address]- 2204 Dec, [facility] [address] [place] [id number] [place] [address]- 4667 Nov, [facility] [address] [place] [id number] [place] [address]- 1597 Nov, [facility] [id number] [place] [address]- 5932 Nov, [facility] [address] [place] [id number] [address]- 3152 Oct, [facility] [address] [facility] [id number] [place] [address]- 9798 September, [facility] [address] [place] [id number] [place]- 6478 September, [facility] [address] [facility] [id number] [place] [address]- 1423 September, Hypoglycemia E16.2 and Weight loss R63.4 [facility] [address]005[address], [place] [address]- 9958 Aug, [facility] [address]005[address], [place] [address]- 1098 Jul, [facility] [address] 1804 Jun, [facility] [address], [place] [address]- 7930 Jun, Hypoglycemia E16.2 [facility] [address]005[address], [place] [address]- 2299 May, [facility] [address]005[address], [place] [address]- 3837 May, [facility] [address] [facility] [id number] [place] [id number] Apr, [facility] [address]005[address], [place] [address]- 3431 Apr, [facility] [address]005[address], [place] [address]- 3268 Mar, [facility] [id number] [place] [address] 41059- 4123 Mar, Dizziness R42 and Low blood sugar E16.2 [facility] [address]005[address], [place] [address]- 6046 Mar, [facility] [address], [place] [address]- 2752 Mar, Dizziness R42 [facility] [address] [place] [id number] [address]- 3760 Mar, Dizziness R42 and Low blood sugar E16.2 IMMUNIZATIONS No Known Immunizations SOCIAL HISTORY Never Assessed REASON FOR VISIT lab orders PLAN OF CARE VITAL SIGNS MEDICATIONS Unknown Medications RESULTS No Results PROCEDURES No Known procedures INSTRUCTIONS MEDICATIONS ADMINISTERED No Known Medications MEDICAL (GENERAL) HISTORY Type Description Date Medical History spastic colon Surgical History Hysterectomy at 29 years of age Surgical History oopherectomy 2001 Surgical History shoulder surgery 2006 Surgical History Hiatal Hernia 2016 Surgical History cholecystectomy 2016 Surgical History Tubal ligation Hospitalization History with child and surgeries listed above. Hospitalization History Hernia issues
--- OUTSIDE RECORDS SUMMARY | 2018-07-08 07:48 | XMS REPORT ---
Author Author JO CHANDRA Organization [facility] Address [address] [place] [address] Care Team Providers Care Prenatal Nurse Name Role Phone JO CHANDRA Unavailable PROBLEMS Type Condition ICD9-CM Code KHV90-II Code Onset Dates Condition Status SNOMED Code Problem Anxiety F41.9 Active 74158849 Problem Hypoglycemia E16.2 Active 821030306 Problem Low blood sugar in diabetes E11.649 Active 294895504 ALLERGIES No Information ENCOUNTERS Encounter Location Date Diagnosis [place] [address] [address]- 1536 Oct, Anxiety F41.9 [place] [address] 39[address]- 0836 Aug, Anxiety F41.9 [facility] [address] 51355- 4716 14 Jun, 2017 Acute right hip pain M25.551 [place] [address] 35896- 7500 Jun, Acute right hip pain M25.551 [facility] [address] 01504- 6952 May, Anxiety F41.9 and Hypoglycemia E16.2 [facility] [address] 61059- 8369 Apr, [place] [address] 29869- 2223 Mar, [place] [address] 56770- 8170 Mar, [place] [address] [place] [address]- 5091 Mar, [facility] [address] [id number] [place] [address]- 3365 Mar, Screening for breast cancer Z12.31 [facility] [place] [facility] [address] [id number] [place] [address]- 7736 Feb, [facility] [address] [id number] [place] [address]- 1043 Feb, [facility] [place] [facility] [address] [id number] [place] [address]- 4339 Feb, [facility] [address] [id number] [place] [address], [place] [address]- 9828 Dec, [facility] [address] [place] [id number] [address]- 2761 Dec, Hypoglycemia E16.2 [facility] [place] [facility] [address] [id number] [place] [address]- 7054 Dec, Hypoglycemia E16.2 [facility] [address] [id number] [place] [address]- 9738 Dec, [facility] [id number] [place] [address]- 9539 Nov, [facility] [address] [place] [id number] [address]- 7011 Nov, [facility] [address] [facility] [id number] [address]- 8944 Nov, [facility] [place] [facility] [address] [id number] [place] [address]- 6143 Oct, [facility] [place] [facility] [address] [id number] [place] [address]- 6203 September, [facility] [place] [facility] [address] [id number] [place] [address]- 2103 September, [facility] [place] [facility] [address] [place] [address] [id number] [address]- 9454 September, Hypoglycemia E16.2 and Weight loss R63.4 [facility] [address] [address]- 7699 Aug, [facility] [address] [address]- 3255 Jul, [facility] [id number] [place] [address] 52490- 5983 Jun, [facility] [id number] [place] [address] 89585- 8584 Jun, Hypoglycemia E16.2 [facility] [address] [place] [address] 764[address]- 3441 May, [facility] [address] [address]- 2954 May, [facility] [address] [place] [id number] [id number] Apr, [facility] [id number] [place] [phone] Apr, [facility] [id number] [address] Mar, [facility] [id number] [address] Mar, Dizziness R42 and Low blood sugar E16.2 [facility] [id number] [address] Mar, [facility] [id number] [address] Mar, Dizziness R42 [facility] [id number] [address] Mar, Dizziness R42 and Low blood sugar E16.2 IMMUNIZATIONS No Known Immunizations SOCIAL HISTORY Never Assessed REASON FOR VISIT Refill request PLAN OF CARE VITAL SIGNS MEDICATIONS [...]
--- OUTSIDE RECORDS SUMMARY | 2018-07-08 07:48 | XMS REPORT ---
Author Author JO CHANDRA Organization [facility] Address [address] [place] [address] Care Team Providers Care Pay Per Click Strategist Name Role Phone JO CHANDRA Unavailable PROBLEMS Type Condition ICD9-CM Code KNO58-DA Code Onset Dates Condition Status SNOMED Code Problem Anxiety F41.9 Active 41999041 Problem Hypoglycemia E16.2 Active 853085363 Problem Low blood sugar in diabetes E11.649 Active 241343367 ALLERGIES No Information ENCOUNTERS Encounter Location Date Diagnosis [place] [id number] [address] Aug, Anxiety F41.9 [facility] [address] [address] 14 Jun, 2017 Acute right hip pain M25.551 [facility] [address] [address]- 2084 14 Jun, 2017 Acute right hip pain M25.551 [facility] [address] [address]- 5605 10 May, 2017 Anxiety F41.9 and Hypoglycemia E16.2 [facility] [address] [address]- 0771 Apr, [facility] [address] [address]- [address] Mar, [facility] [address] [address]- 9164 Mar, [facility] [address] [address]- 1132 Mar, [facility] [address] [address]- 5673 Mar, Screening for breast cancer Z12.31 [facility] [address] [place] [id number] [place] [address] 9044 Feb, [facility] [address] [place] [id number] [place] [address] Feb, [facility] [id number] [place] [address]- 3119 Feb, [facility] [address] [facility] [id number] [place] [address]- 0141 Dec, [facility] [id number] [place] [address], [place] [address]- 9198 Dec, Hypoglycemia E16.2 [facility] [address] [place] [id number] [place] [address] Dec, Hypoglycemia E16.2 [facility] [id number] [place] [address]- 5898 Dec, [facility] [address] [place] [id number] [place] [address]- 6765 Nov, [facility] [address] [place] [id number] [place] [address]- 0481 Nov, [facility] [id number] [place] [address]- 3200 Nov, [facility] [address] [place] [id number] [address]- 7155 Oct, [facility] [address] [facility] [id number] [place] [address]- 8923 September, [facility] [address] [place] [id number] [place] [place] 9125 September, [facility] [address] [facility] [id number] [place] [address]- 1163 September, Hypoglycemia E16.2 and Weight loss R63.4 [facility] [address] [address] 6253 Aug, [facility] [id number], [place] [address] 8441 Jul, [facility] [id number] 18[address] Jun, [facility] [id number] 6[address] Jun, Hypoglycemia E16.2 [facility] [id number] [address]- 4[address] May, [facility] [id number], [place] [address]- 9130 May, [facility] [address] [facility] [id number] [place] [id number] Apr, [facility] [id number], [place] [address]- 2302 Apr, [facility] [id number], [place] [address]- 7953 Mar, [facility] [address], [place] [address]- 8006 Mar, Dizziness R42 and Low blood sugar E16.2 [facility] [address], [place] [address]- 0163 Mar, [facility] [address], [place] [address]- 7444 Mar, Dizziness R42 [facility] [address] [place] [id number] [address]- 8268 Mar, Dizziness R42 and Low blood sugar E16.2 IMMUNIZATIONS No Known Immunizations SOCIAL HISTORY Never Assessed REASON FOR VISIT Mammo Order PLAN OF CARE VITAL SIGNS MEDICATIONS Unknown Medications RESULTS Name Result Date Reference Range Mammogram, Bilateral Screening 2017-03-13 PROCEDURES No Known procedures INSTRUCTIONS MEDICATIONS ADMINISTERED No Known Medications MEDICAL (GENERAL) HISTORY Type Description Date Medical History spastic colon Surgical History Hysterectomy at 29 years of age Surgical History oopherectomy 2002 Surgical History shoulder surgery 2006 Surgical History Hiatal Hernia 2016 Surgical History cholecystectomy 2016 Surgical History Tubal ligation Hospitalization History with child and surgeries listed above. Hospitalization History Hernia issues
--- OUTSIDE RECORDS SUMMARY | 2018-07-08 07:48 | XMS REPORT ---
Author Author JO CHANDRA [facility] Address [address] [place] [address] Care Team Providers Care Proposal Engineer Name Role Phone JO CHANDRA Unavailable PROBLEMS Type Condition ICD9-CM Code YGY30-HD Code Onset Dates Condition Status SNOMED Code Problem Hypoglycemia E16.2 Active 401715622 Problem Low blood sugar in diabetes E11.649 Active 232007609 Problem Low blood sugar E16.2 Active 751563363 ALLERGIES Unknown Allergies SOCIAL HISTORY No smoking Hx information available PLAN OF CARE VITAL SIGNS MEDICATIONS Medication Instructions Dosage Frequency Start Date End Date Duration Status Ativan 1 MG Orally Once a day 1 tablet at bedtime 24h Active RESULTS No Results PROCEDURES No Known procedures IMMUNIZATIONS No Known Immunizations
--- OUTSIDE RECORDS SUMMARY | 2018-07-08 07:48 | XMS REPORT ---
Author Author JO CHANDRA [facility] Address [address] [place] [address] Care Team Providers Care Mastic Sprayer Name Role Phone JO CHANDRA Unavailable PROBLEMS Type Condition ICD9-CM Code UOL26-IL Code Onset Dates Condition Status SNOMED Code Problem Hypoglycemia E16.2 Active 881914357 Problem Low blood sugar in diabetes E11.649 Active 768617575 ALLERGIES No Information SOCIAL HISTORY Never Assessed PLAN OF CARE VITAL SIGNS MEDICATIONS Unknown Medications RESULTS No Results PROCEDURES No Known procedures IMMUNIZATIONS No Known Immunizations MEDICAL (GENERAL) HISTORY Type Description Date Medical History spastic colon Surgical History Hysterectomy at 29 years of age Surgical History oopherectomy 2001 Surgical History shoulder surgery 2005 Surgical History Hiatal Hernia 2016 Surgical History cholecystectomy 2016 Surgical History Tubal ligation Hospitalization History with child and surgeries listed above. Hospitalization History Hernia issues
--- OUTSIDE RECORDS SUMMARY | 2018-07-08 07:48 | XMS REPORT ---
Author Author JO CHANDRA Organization [facility] Address [address] [place] [address] Care Team Providers Care Manager Utilization Management Name Role Phone JO CHANDRA Unavailable PROBLEMS Type Condition ICD9-CM Code VGA93-AO Code Onset Dates Condition Status SNOMED Code Problem Anxiety F41.9 Active 60607200 Problem Hypoglycemia E16.2 Active 379444144 Problem Low blood sugar in diabetes E11.649 Active 147541501 ALLERGIES No Information ENCOUNTERS Encounter Location Date Diagnosis [place] [address] [place] [id number] [place] [address]- 4502 14 Jun, 2017 Acute right hip pain M25.551 [facility] [address] [place] [id number] [place] [address]- 6214 Jun, Acute right hip pain M25.551 [facility] [address] [place] [id number] [place] [address]- 3304 10 May, 2017 Anxiety F41.9 and Hypoglycemia E16.2 [facility] [address] [place] [id number] [place] [address]- 4771 Apr, [facility] [address] [place] [id number] [place] [address] 857[address]- 7278 Mar, [facility] [address] [place] [id number] [place] [address] 25512- 5786 Mar, [facility] [address] [address]- 2711 Mar, [facility] [address] [place] [id number] [place] [address] 44538- 3299 Mar, Screening for breast cancer Z12.31 [facility] [address] [place] [id number] [place] [address] 086[address]- 8177 Feb, [facility] [address] [facility] [id number] [place] [address]- 7464 Feb, [facility] [address] [facility] [id number] [place] [address]- 9007 Feb, [facility] [address] [facility] [id number] [place] [address]- 8625 Dec, [facility] [address] [facility] [id number] [place] [address]- 1786 Dec, Hypoglycemia E16.2 [facility] [address] [facility] [id number] [place] [address], [place] [address]- 2611 Dec, Hypoglycemia E16.2 [facility] [address] [place] [id number] [place] [address]- 0110 Dec, [facility] [id number] [place] [address]- 8828 Nov, [facility] [address] [facility] [id number] [place] [address]- 2153 Nov, [facility] [address]00565100[facility] [place] [address]- 2286 Nov, [facility] [address] [place] [id number] [address]- 2411 Oct, [facility] [address] [place] [id number] [place] [address]- 7370 September, [facility] [address] [facility] [id number] [place] [address]- 5281 September, [facility] [address] [place] [id number] [address]- 2827 September, Hypoglycemia E16.2 and Weight loss R63.4 [facility] [address] [place] [id number] [address]- 2887 Aug, [facility] [address] [place] [id number] [address]- 6838 Jul, [facility] [address]005[address] [address]- 8516 Jun, [facility] [address]005[address] 2036 Jun, Hypoglycemia E16.2 [facility] [address]00565[address] [address]- 3930 May, [facility] [address]005[address] [address]- 7782 May, [facility] [address] [facility] [id number] [place] [address] Apr, [facility] [address]00565[address] [address]- 8677 Apr, [facility] [address]00565[address] [address]- 3141 Mar, [facility] [address]00565[address] [address]- 8423 Mar, Dizziness R42 and Low blood sugar E16.2 [facility] [address]00565[address] [address]- 5443 Mar, [facility] [address] [address]- 7029 Mar, Dizziness R42 [facility] [address]00565[address] [address]- 9760 Mar, Dizziness R42 and Low blood sugar [...]
--- OUTSIDE RECORDS SUMMARY | 2018-07-08 07:48 | XMS REPORT ---
Author Author JO CHANDRA Organization [employer] Address Unknown Phone Unavailable Care Team Providers Care Utility Hand Name Role Phone JO CHANDRA CP Unavailable Allergies, Adverse Reactions, Alerts Substance Reaction Event Type N.K.D.A. Info Not Available Non Drug Allergy Problems Problem Type Condition Code Onset Dates Condition Status Problem Low blood sugar E16.2 Active Problem Low blood sugar in diabetes E11.649 Active Medications Medication Code System Code Instructions Start Date End Date Status Dosage Ativan [facility][NOTE 2] [address]-07 1 MG Orally Once a day 1 tablet at bedtime as needed Results No Known Results Summary Purpose [employer] Submission
--- OUTSIDE RECORDS SUMMARY | 2018-07-08 07:48 | XMS REPORT ---
Author Author JO CHANDRA Organization [facility] Address [address] [place] [address] Care Team Providers Care Dairy Store Manager Name Role Phone JO CHANDRA Unavailable PROBLEMS Type Condition ICD9-CM Code LBK58-AM Code Onset Dates Condition Status SNOMED Code Problem Anxiety F41.9 Active 34852233 Problem Hypoglycemia E16.2 Active 913252779 Problem Low blood sugar in diabetes E11.649 Active 871645437 ALLERGIES No Information ENCOUNTERS Encounter Location Date Diagnosis [place] [address] [address]- 9041 Dec, [facility] [address] [address]- 9402 Oct, Anxiety F41.9 [facility] [address] 5[address]- 2035 Aug, Anxiety F41.9 [facility] [address] 68727- 1224 14 Jun, 2017 Acute right hip pain M25.551 [facility] [address] 7[address]- 0521 14 Jun, 2017 Acute right hip pain M25.551 [facility] [address] [place] [id number] [place] [address]360- 5228 10 May, 2017 Anxiety F41.9 and Hypoglycemia E16.2 [facility] [address] 10[address]- 6062 Apr, [place] [address] 57[address]- 7658 Mar, [facility] [address] [place] [address]- 2624 Mar, [facility] [address] [id number] [place] [address]- 8798 Mar, [facility] [place] [facility] [address]00565[address] [address]- 7238 Mar, Screening for breast cancer Z12.31 [facility] [place] [facility] [id number] [place] [address]- 7021 Feb, [facility] [place] [facility] [address] [id number] [place] [address]- 4177 Feb, [facility] [place] [facility] [address] [place] [id number] [place] [address], [place]- 2683 Feb, [facility] [place] [facility] [id number] [place] [address]- 2500 Dec, [facility] [place] [facility] [id number] [place] [address], [place] [address]- 5846 Dec, Hypoglycemia E16.2 [facility] [place] [facility] [address]00565100[facility] [place] [address]- 7914 Dec, Hypoglycemia E16.2 [facility] [place] [facility] [address]00565[address] [address]- 4502 Dec, [facility] [place] [facility] [id number], [place] [address]- 6579 Nov, [facility] [place] [facility] [address] [place] [id number] [address]- 0923 Nov, [facility] [place] [facility] [address] [facility] [id number] [place] [address]- 0980 Nov, [facility] [place] [facility] [address] [facility] [id number] [place] 9910 Oct, [facility] [place] [facility] [address] [place] [id number] 0840 September, [facility] [place] [facility] [address]005[address] [address]- 9670 September, [facility] [address] [place] [id number] [address]- 6504 September, Hypoglycemia E16.2 and Weight loss R63.4 [facility] [address] 3618 Aug, [facility] [address] 6310 Jul, [facility] [address]005[address] [address]- 0543 Jun, [facility] [address] [place] [id number] [place] [address] 968979- 4320 Jun, Hypoglycemia E16.2 [facility] [address] [address]- 1702 May, [facility] [address]00565[address] [address]- 5794 May, [facility] [place] [address] [facility] [id number] [place] [address] Apr, [facility] [address] [address]- 1119 Apr, [facility] [address] [place] [address] [id number] [address]- 8362 Mar, [facility] [address] [address]- 3243 Mar, Dizziness R42 and Low blood sugar E16.2 [facility] [address], [place] [address]- 5113 Mar, [facility] [address] 3101 Mar, Dizziness R42 [facility] [address] [place] [id number] [address]- 4793 Mar, Dizziness R42 and Low blood sugar E16.2 IMMUNIZATIONS No Known Immunizations SOCIAL HISTORY Never Assessed REASON FOR VISIT Xray (walk-in)--[facility] PLAN OF CARE VITAL SIGNS MEDICATIONS Unknown Medications RESULTS Name Result Date Reference Range Xray : Hip, Right 2 views (IN HOUSE) 2017-06-20 PROCEDURES Procedure Date Ordered Result Body Site X-RAY EXAM HIP UNI 2-3 VIEWS Jun 20, 2017 INSTRUCTIONS MEDICATIONS ADMINISTERED No Known Medications MEDICAL [...]
--- OUTSIDE RECORDS SUMMARY | 2018-07-08 07:48 | XMS REPORT ---
Author Author JO CHANDRA Organization [facility] Address [address] [place] [address] Care Team Providers Care Ship Engines Operating Engineer Name Role Phone JO CHANDRA Unavailable PROBLEMS Type Condition ICD9-CM Code KCZ03-TJ Code Onset Dates Condition Status SNOMED Code Problem Anxiety F41.9 Active 47382183 Problem Hypoglycemia E16.2 Active 658128461 Problem Low blood sugar in diabetes E11.649 Active 020060950 ALLERGIES No Information ENCOUNTERS Encounter Location Date Diagnosis [place] [address] [place] [id number] [place] [address] 60156- 2393 Dec, [facility] [address] [address]- 0949 Nov, Anxiety F41.9 [facility] [address] 27461- 8835 Oct, Anxiety F41.9 [place] [address] [place] [id number] [place] [address] 21311- 6070 Aug, Anxiety F41.9 [facility] [address] [place] [id number] [place] [address] 93125- 1342 14 Jun, 2017 Acute right hip pain M25.551 [facility] [address] [place] [id number] [place] [address] 50413- 7619 14 Jun, 2017 Acute right hip pain M25.551 [facility] [address] [place] [id number] [place] [address] 61677- 6086 May, Anxiety F41.9 and Hypoglycemia E16.2 [facility] [address] [place] [id number] [place] [address] 91080- 2749 Apr, [facility] [address] [place] [id number] [place] [address]- 7352 Mar, [facility] [place] [facility] [address] [id number] [place] [address]- 5643 Mar, [facility] [place] [facility] [address] [id number] [place] [address]- 3925 Mar, [facility] [place] [facility] [address] [id number] [place] [address] Mar, Screening for breast cancer Z12.31 [facility] [place] [facility] [address] [id number] [place] [address]- 8474 Feb, [facility] [place] [facility] [address] [id number] [place] [address]- 8866 Feb, [facility] [place] [facility] [address] [facility] [id number] [place] [address]- 1440 Feb, [facility] [place] [facility] [address] [id number] [place] [address]- 9365 Dec, [facility] [place] [facility] [address] [id number] [place] [address]- 2892 Dec, Hypoglycemia E16.2 [facility] [place] [facility] [address] [facility] [id number] [place] [address]- 5580 Dec, Hypoglycemia E16.2 [facility] [place] [facility] [address] [id number] [place] [address]- 7985 Dec, [facility] [place] [facility] [address] [id number] [place] [address]- 7095 Nov, [facility] [place] [facility] [address] [id number] [place] [address]- 8515 Nov, [facility] [place] [facility] [address] [id number] [place] 8214 Nov, [facility] [place] [facility] [address] [facility] [id number] [place] [address]- 0821 Oct, [facility] [place] [facility] [address] [place] [address] [id number] [address]- 5586 September, [facility] [id number] [place] [address] 51573- 2649 September, [facility] [address] [id number] [place] [address] 91565- 9357 September, Hypoglycemia E16.2 and Weight loss R63.4 [facility] [address] [place] [address] [id number] [place] [address] 20196- 3353 Aug, [facility] [address] [place] [address] [id number] [place] [address] 47219- 9419 Jul, [facility] [address] [place] [address] [id number] [place] [address] 32588- 9523 Jun, [facility] [address] [place] [address] [id number] [place] [address] 76303- 7321 Jun, Hypoglycemia E16.2 [facility] [address] [place] [address] [id number] [place] [address] 60107- 0587 May, [facility] [address] [place] [address] [id number] [place] [address] 67001- 4360 May, [facility] [address] [place] [address] Apr, [facility] [address] [place] [address] [id number] [place] [address] 10296- 0488 Apr, [facility] [address] [place] [address] [id number] [place] [address] 37791- 0568 Mar, [facility] [address] [place] [address] [id number] [place] [address] 75591- 4855 Mar, Dizziness R42 and Low blood sugar E16.2 [facility] [address] [place] [address] [id number] [place] [address] 43207- 9540 Mar, [facility] [address] [place] [id number] [place] [address] 70938- 2292 Mar, Dizziness R42 [facility] [address] [place] [address] [id number] [place] [address]- 9845 Mar, Dizziness R42 and Low blood sugar E16.2 IMMUNIZATIONS No Known Immunizations SOCIAL HISTORY Never Assessed REASON FOR VISIT med refill PLAN OF CARE VITAL SIGNS MEDICATIONS Medication [...]
--- OUTSIDE RECORDS SUMMARY | 2018-07-08 07:48 | XMS REPORT ---
Author Author JO CHANDRA Organization [facility] Address [address] [place] [address] Care Team Providers Care Sql Etl Developer Name Role Phone JO CHANDRA Unavailable PROBLEMS Type Condition ICD9-CM Code UVW19-PL Code Onset Dates Condition Status SNOMED Code Problem Anxiety F41.9 Active 66677788 Problem Hypoglycemia E16.2 Active 002158258 Problem Low blood sugar in diabetes E11.649 Active 743728637 ALLERGIES No Information ENCOUNTERS Encounter Location Date Diagnosis [place] [address] [address] Aug, Anxiety F41.9 [facility] [address] [address]- [address] 14 Jun, 2017 Acute right hip pain M25.551 [facility] [address] [address]- 3[address] 14 Jun, 2017 Acute right hip pain M25.551 [facility] [address] [address]- 3413 10 May, 2017 Anxiety F41.9 and Hypoglycemia E16.2 [facility] [address] [address]- [address]378 Apr, [facility] [address] [address]- 9020 Mar, [facility] [address] [address]- 8228 Mar, [facility] [address] [address]- 8269 Mar, [facility] [address] [address] Mar, Screening for breast cancer Z12.31 [facility] [address] [place] [id number] [place] [address] 7075 Feb, [facility] [address] [place] [id number] [address] Feb, [facility] [id number] [place] [address] 9957 Feb, [facility] [address] [facility] [id number] [place] [address]- 0082 Dec, [facility] [address] [place] [address], [place] [address]- 3164 Dec, Hypoglycemia E16.2 [facility] [address] [place] [id number] [place] [address]- 9588 Dec, Hypoglycemia E16.2 [facility] [id number] [place] [address]- 1515 Dec, [facility] [address] [place] [id number] [place] [address]- 1441 Nov, [facility] [address] [place] [id number] [place] [address]- 3180 Nov, [facility] [id number] [place] [address]- 6467 Nov, [facility] [address] [place] [id number] [address]- 4957 Oct, [facility] [address] [facility] [id number] [place] [address]- 9590 September, [facility] [address] [place] [id number] [address] September, [facility] [address] [facility] [id number] [place] [address]- 6026 September, Hypoglycemia E16.2 and Weight loss R63.4 [facility] [address] [address] 48[address] Aug, [facility] [address] [address]- 7135 Jul, [facility] [address] [address]- 3827 Jun, [facility] [address], [place] [address]- 5386 Jun, Hypoglycemia E16.2 [facility] [address] [address]- 4586 May, [facility] [address] [place] [address]86- 7341 May, [facility] [address] [facility] [id number] [place] [id number] Apr, [facility] [address] [place] [address] 48484- 3295 Apr, [facility] [address] [address]- 2109 Mar, [facility] [address] [place] [address]- 2003 Mar, Dizziness R42 and Low blood sugar E16.2 [facility] [address]65[address] [address]- 7825 Mar, [facility] [address] [address]- 2161 Mar, Dizziness R42 [facility] [address] [address]- 1293 Mar, Dizziness R42 and Low blood sugar [...]
--- OUTSIDE RECORDS SUMMARY | 2018-07-08 07:49 | XMS REPORT ---
Author Author JO CHANDRA Organization [facility] Address [address] [place] [address] Care Team Providers Care Bible Reader Name Role Phone JO CHANDRA Unavailable PROBLEMS Type Condition ICD9-CM Code NXZ60-HM Code Onset Dates Condition Status SNOMED Code Problem Hypoglycemia E16.2 Active 805463252 Problem Low blood sugar in diabetes E11.649 Active 075475168 ALLERGIES No Information SOCIAL HISTORY Never Assessed PLAN OF CARE VITAL SIGNS MEDICATIONS Medication Instructions Dosage Frequency Start Date End Date Duration Status Ativan 1 MG Orally Once a day 1 tablet at bedtime 24h 28 days Active RESULTS No Results [...]
--- OUTSIDE RECORDS SUMMARY | 2018-07-08 07:49 | XMS REPORT ---
Author Author JO CHANDRA Organization [facility] Address [address] [place] [address] Care Team Providers Care Marshmallow Maker Name Role Phone JO CHANDRA Unavailable PROBLEMS Type Condition ICD9-CM Code DUA29-OS Code Onset Dates Condition Status SNOMED Code Problem Anxiety F41.9 Active 74994211 Problem Hypoglycemia E16.2 Active 768251420 Problem Low blood sugar in diabetes E11.649 Active 932109429 ALLERGIES No Information ENCOUNTERS Encounter Location Date Diagnosis [place] [place] [id number] [place] [address]- 0900 14 Jun, 2017 Acute right hip pain M25.551 [facility] [address] [place] [id number] [place] [address] 33129- 4959 Jun, Acute right hip pain M25.551 [facility] [address] [place] [id number] [place] [address] 07718- 5817 10 May, 2017 Anxiety F41.9 and Hypoglycemia E16.2 [facility] [address] [place] [id number] [place] [address] 30962- 9767 Apr, [facility] [address] [place] [id number] [place] [address] 47053- 7947 Mar, [facility] [address] [place] [id number] [place] [address] 07633- 9055 Mar, [facility] [address] [address]- 1410 Mar, [facility] [address] [place] [id number] [place] [address] 10503- 5273 Mar, Screening for breast cancer Z12.31 [facility] [address] [place] [id number] [place] [address]- 2849 Feb, [facility] [address] [facility] [id number] [place] [address]- 5241 Feb, [facility] [address] [facility] [id number] [place] [address]- 7857 Feb, [facility] [address] [facility] [id number] [place] [address]- 0084 Dec, [facility] [address] [facility] [id number] [place] [address]- 7825 Dec, Hypoglycemia E16.2 [facility] [address] [facility] [id number] [place] [address], [place] [address]- 0360 Dec, Hypoglycemia E16.2 [facility] [address] [place] [id number] [place] [address]- 0606 Dec, [facility] [address]65100[facility] [place] [address]- 1238 Nov, [facility] [address] [facility] [id number] [place] [address]- 7257 Nov, [facility] [id number] [place] [address]- 3482 Nov, [facility] [address] [place] [id number], [place] [address]- 3908 Oct, [facility] [address] [place] [id number] [place] [address]- 8485 September, [facility] [address] [facility] [id number] [place] [address]- 6845 September, [facility] [address] [place] [id number], [place] [address]- 1052 September, Hypoglycemia E16.2 and Weight loss R63.4 [facility] [address] [place] [id number] [address]- 4124 Aug, [facility] [address] [place] [id number] 9146 Jul, [facility] [address] [place] [id number] [address]- 6535 Jun, [facility] [address] [address] Jun, Hypoglycemia E16.2 [facility] [address]005[address], [place] [address]- 5344 May, [facility] [address]005[address], [place] [address]- 8340 May, [facility] 1408 [facility] [id number] [place] [id number] Apr, [facility] [address]00565[address], [place] [address]- 6255 Apr, [facility] [address], [place] [address]- 0901 Mar, [facility] [address]00565100[place], [place] [address]- 9714 Mar, Dizziness R42 and Low blood sugar E16.2 [facility] [address]00565[address], [place] [address]- 1881 Mar, [facility] [address] [place] [id number], [place] [address]- 0520 Mar, Dizziness R42 [facility] [address]00565[address], [place] [address]- 0896 Mar, Dizziness R42 and Low blood sugar E16.2 IMMUNIZATIONS No Known Immunizations SOCIAL HISTORY Never Assessed REASON FOR VISIT Requests return call PLAN OF CARE VITAL SIGNS MEDICATIONS [...]
--- OUTSIDE RECORDS SUMMARY | 2018-07-08 07:49 | XMS REPORT ---
Author Author JO CHANDRA Organization [employer] Address Unknown Phone Unavailable Care Team Providers Care Brim Cutter Name Role Phone JO CHANDRA Unavailable Allergies No Known Allergies Problems Problem Type Condition Code Onset Dates Condition Status Problem Low blood sugar E16.2 Active Problem Low blood sugar in diabetes E11.649 Active Medications Medication Code System Code Instructions Start Date End Date Status D[facility] [id number] 1 MG Orally Once a day 1 tablet at bedtime Results No Known Results Summary Purpose [employer] Submission
--- OUTSIDE RECORDS SUMMARY | 2018-07-08 07:49 | XMS REPORT ---
Author Author JO CHANDRA Organization [facility] Address [address] [place] [address] Care Team Providers Care Tire Duster Name Role Phone JO CHANDRA Unavailable PROBLEMS Type Condition ICD9-CM Code ARA17-LK Code Onset Dates Condition Status SNOMED Code Problem Anxiety F41.9 Active 29537676 Problem Hypoglycemia E16.2 Active 454339620 Problem Low blood sugar in diabetes E11.649 Active 221303886 ALLERGIES No Information ENCOUNTERS Encounter Location Date Diagnosis [place] [address] [place] [id number] [place] [address]- 1152 14 Jun, 2017 Acute right hip pain M25.551 [facility] [address] [place] [id number] [place] [address] 34940- 4987 Jun, Acute right hip pain M25.551 [facility] [address] [place] [id number] [place] [address] 17774- 3809 10 May, 2017 Anxiety F41.9 and Hypoglycemia E16.2 [facility] [address] [place] [id number] [place] [address] 16496- 6077 Apr, [facility] [address] [place] [id number] [place] [address] 74703- 5636 Mar, [facility] [address] [place] [id number] [place] [address] 62640- 8966 Mar, [facility] [address] [address]- 4641 Mar, [facility] [address] [place] [id number] [place] [address] 21573- 3678 Mar, Screening for breast cancer Z12.31 [facility] [address] [place] [id number] [place] [address] 56129- 6672 Feb, [facility] [address] [facility] [id number] [place] [address]- 2334 Feb, [facility] [address] [facility] [id number] [place] [address]- 2616 Feb, [facility] [address] [facility] [id number] [place] [address]- 4505 Dec, [facility] [address] [facility] [id number] [place] [address]- 5606 Dec, Hypoglycemia E16.2 [facility] [address] [facility] [id number] [place] [address], [place] [address]- 0869 Dec, Hypoglycemia E16.2 [facility] [address] [place] [id number] [address]- 0427 Dec, [facility] [address]00565100[facility] [address]- 6674 Nov, [facility] [address] [facility] [id number] [place] [address]- 7305 Nov, [facility] [id number] [address]- 8191 Nov, [facility] [address] [place] [id number] [address]- 0709 Oct, [facility] [address] [place] [id number] [address]- 3404 September, [facility] [address] [facility] [id number] [place] [address]- 4480 September, [facility] [address] [place] [id number] [address]- 5744 September, Hypoglycemia E16.2 and Weight loss R63.4 [facility] [address] [place] [id number] [address]- 5359 Aug, [facility] [address] [place] [id number] [address]- 8755 Jul, [facility] [address]005[address] [address]- 9682 Jun, [facility] [address] 9034 Jun, Hypoglycemia E16.2 [facility] [address]005[address] [address]- 7861 May, [facility] [address]00565[address] [address]- 6260 May, [facility] 1408 [facility] [id number] [place] [address] Apr, [facility] [address]00565[address] [address]- 2523 Apr, [facility] [address]00565[address] [address]- 6008 Mar, [facility] [address]005[address] [address]- 1411 Mar, Dizziness R42 and Low blood sugar E16.2 [facility] [address]00565[address] [address]- 7680 Mar, [facility] [address]005[address] [address]- 1334 Mar, Dizziness R42 [facility] [address]00565[address] [address]- 5721 Mar, Dizziness R42 and Low blood sugar [...]
--- OUTSIDE RECORDS SUMMARY | 2018-07-08 07:49 | XMS REPORT ---
Author JO Rebollar Organization [employer] Address Unknown Phone Unavailable Care Team Providers Care Lens Grinder Name Role Phone JO CHANDRA CP Unavailable Allergies No Known Allergies Problems Problem Type Condition Code Onset Dates Condition Status Problem Low blood sugar E16.2 Active Assessment Dizziness R42 Active Problem Low blood sugar in diabetes E11.649 Active Assessment Low blood sugar E16.2 Active Medications No Known Medications Results No Known Results Summary Purpose [employer] Submission
--- OUTSIDE RECORDS SUMMARY | 2018-07-08 07:49 | XMS REPORT ---
Author Author JO CHANDRA Organization [facility] Address [address] [place] [address] Care Team Providers Care High School Mathematics Teacher Name Role Phone JO CHANDRA Unavailable PROBLEMS Type Condition ICD9-CM Code MQD75-CO Code Onset Dates Condition Status SNOMED Code Problem Anxiety F41.9 Active 81485176 Problem Hypoglycemia E16.2 Active 420360792 Problem Low blood sugar in diabetes E11.649 Active 432084950 ALLERGIES No Information ENCOUNTERS Encounter Location Date Diagnosis [place] [address] [place] [id number] [place] [address] 75387- 9175 14 Jun, 2017 Acute right hip pain M25.551 [facility] [address] [place] [id number] [place] [address] 09370- 4160 Jun, Acute right hip pain M25.551 [facility] [address] [place] [id number] [place] [address] 11991- 4931 10 May, 2017 Anxiety F41.9 and Hypoglycemia E16.2 [facility] [address] [place] [id number] [place] [address] 48942- 7756 Apr, [facility] [address] [place] [id number] [place] [address] 65360- 5310 Mar, [facility] [address] [place] [id number] [place] [address] 82565- 5215 Mar, [facility] [address] [address]- 4558 Mar, [facility] [address] [place] [id number] [place] [address] 49408- 9139 Mar, Screening for breast cancer Z12.31 [facility] [address] [place] [id number] [place] [address] 78587- 3119 Feb, [facility] [address] [facility] [id number] [place] [address]- 9723 Feb, [facility] [address] [facility] [id number] [place] [address]- 9909 Feb, [facility] [address] [facility] [id number] [place] [address]- 1637 Dec, [facility] [address] [facility] [id number] [place] [address]- 1194 Dec, Hypoglycemia E16.2 [facility] [address] [facility] [id number] [place] [address], [place] [address]- 7925 Dec, Hypoglycemia E16.2 [facility] [address] [place] [id number] [address]- 9446 Dec, [facility] [address]00565[address] [place] [address]- 2491 Nov, [facility] [address] [facility] [id number] [place] [address]- 1402 Nov, [facility] [address]00565[address] [place] [address]- 6352 Nov, [facility] [address] [place] [id number], [place] [address]- 9157 Oct, [facility] [address] [place] [id number] [place] [address]- 2961 September, [facility] [address] [facility] [id number] [place] [address]- 1625 September, [facility] [address] [place] [id number] [address]- 2237 September, Hypoglycemia E16.2 and Weight loss R63.4 [facility] [address] [place] [id number], [place] [address]- 1475 Aug, [facility] [address] [place] [id number], [place] [address]- 6405 Jul, [facility] [address]005[address], [place] [address]- 1353 Jun, [facility] [address]00565[address] 9924 Jun, Hypoglycemia E16.2 [facility] [address]005[address], [place] [address]- 1481 May, [facility] [address]00565[address], [place] [address]- 4786 May, [facility] [address] [facility] [id number] [place] [id number] Apr, [facility] [address]005[address], [place] [address]- 0643 Apr, [facility] [address]005[address], [place] [address]- 4566 Mar, [facility] [address]005[address], [place] [address]- 8350 Mar, Dizziness R42 and Low blood sugar E16.2 [facility] [address]005[address], [place] [address]- 0085 Mar, [facility] [address]005[address], [place] [address]- 9669 Mar, Dizziness R42 [facility] [address]005[address], [place] [address]- 4781 Mar, Dizziness R42 and Low blood sugar [...]
--- OUTSIDE RECORDS SUMMARY | 2018-07-08 07:49 | XMS REPORT ---
Author Author JO CHANDRA Organization [facility] Address [address] [place] [address] Care Team Providers Care Cephalometric Tracer Name Role Phone JO CHANDRA Unavailable PROBLEMS Type Condition ICD9-CM Code RUM59-OE Code Onset Dates Condition Status SNOMED Code Problem Anxiety F41.9 Active 16469821 Problem Hypoglycemia E16.2 Active 708439945 Problem Low blood sugar in diabetes E11.649 Active 275494589 ALLERGIES No Information ENCOUNTERS Encounter Location Date Diagnosis [place] [address] [address]- [address] Aug, Anxiety F41.9 [facility] [address] 16461- 4702 14 Jun, 2017 Acute right hip pain M25.551 [place] [address] 27674- 0849 14 Jun, 2017 Acute right hip pain M25.551 [facility] [address] [address]- 1966 10 May, 2017 Anxiety F41.[address] [facility] [address] [address]3212- 5365 Apr, [facility] [address] [address]- 8814 Mar, [facility] [address] 56296- 8123 Mar, [place] [address] [address]7977- 0029 Mar, [facility] [address] 19933- 1472 Mar, Screening for breast cancer Z12.31 [facility] [address] [place] [id number] [place] [address]- 8168 Feb, [facility] [address] [place] [id number] [place] 5716 Feb, [facility] [id number] [place] [address]- 6491 Feb, [facility] [address] [facility] [id number] [place] [address]- 6130 Dec, [facility] [id number] [place] [address], [place] [address]- 6583 Dec, Hypoglycemia E16.2 [facility] [address] [place] [id number] [address]- 4514 Dec, Hypoglycemia E16.2 [facility] [id number] [place] [address]- 4702 Dec, [facility] [address] [place] [id number] [place] [address]- 8594 Nov, [facility] [address] [place] [id number] [place] [address]- 2557 Nov, [facility] [id number] [place] [address]- 4895 Nov, [facility] [address] [id number] [address]- 1753 Oct, [facility] [address] [facility] [id number] [place] [address]- 8378 September, [facility] [address] [id number] [place] [address] September, [facility] [address] [facility] [id number] [place] [address] September, Hypoglycemia E16.[address] [facility] [address], [place] [address] Aug, [facility] [id number] [address] Jul, [facility] [id number] [address] Jun, [facility] [id number], [place] [address] Jun, [address] E16.2 [facility] [id number], [place] [address] May, [facility] [id number] [place] [address] May, [facility] [address] [facility] [id number] [place] [id number] Apr, [facility] [id number] [place] [address] Apr, [facility] [id number], [place] [address] Mar, [facility] [id number] [place] [address] Mar, Dizziness R42 and Low blood sugar E16.2 [facility] [address], [place] [address] Mar, [facility] [address], [place] [address] Mar, Dizziness R42 [facility] [id number], [place] [address] Mar, Dizziness R42 and Low blood sugar E16.2 IMMUNIZATIONS No Known Immunizations SOCIAL HISTORY Never Assessed REASON FOR VISIT Rx request PLAN OF CARE VITAL SIGNS MEDICATIONS [...]
--- OUTSIDE RECORDS SUMMARY | 2018-07-08 07:49 | XMS REPORT ---
Author Author JO CHANDRA Organization [facility] Address [address] [place] [address] Care Team Providers Care Calker Name Role Phone JO CHANDRA Unavailable PROBLEMS Type Condition ICD9-CM Code AAY31-WF Code Onset Dates Condition Status SNOMED Code Problem Anxiety F41.9 Active 13712644 Problem Hypoglycemia E16.2 Active 228366308 Problem Low blood sugar in diabetes E11.649 Active 181026237 ALLERGIES No Information ENCOUNTERS Encounter Location Date Diagnosis [place] [address] [address] Aug, Anxiety F41.9 [facility] [address] [address] 14 Jun, 2017 Acute right hip pain M25.551 [facility] [address] [address] 14 Jun, 2017 Acute right hip pain M25.551 [facility] [address] [address] 10 May, 2017 Anxiety F41.9 and Hypoglycemia E16.2 [facility] [address] [address] Apr, [facility] [address] [address] Mar, [facility] [address] [address] Mar, [place] [address] [address] Mar, [facility] [address] [address] Mar, Screening for breast cancer Z12.31 [facility] [address] [place] [id number] [place] [address] Feb, [facility] [address] [place] [id number] [address] Feb, [facility] [address] [place] [address] Feb, [facility] [address] [facility] [id number] [place] [address] Dec, [facility] [address] [place] [address], [place] [address] Dec, Hypoglycemia E16.2 [facility] [address] [place] [id number] [place] [address] Dec, Hypoglycemia E16.2 [facility] [address] [place] [address] Dec, [facility] [address] [place] [id number] [place] [address] Nov, [facility] [address] [place] [id number] [place] [address] Nov, [facility] [address] [place] [address] Nov, [facility] [address] [id number] [address] Oct, [facility] [address] [facility] [id number] [place] [address] 6[address] September, [facility] [address] [place] [id number] [address] September, [facility] [address] [facility] [id number] [place] [address]- [address] September, Hypoglycemia E16.2 and Weight loss R63.4 [facility] [address] [address] Aug, [facility] [address] [address] Jul, [facility] [address] [address] Jun, [facility] [address] [address]- [address] Jun, Hypoglycemia E16.2 [facility] [address] [address] May, [facility] [address] [place] [address] May, [facility] [address] [facility] [id number] [place] [id number] Apr, [facility] [address] [place] [address] Apr, [facility] [address] [address]- [address] Mar, [facility] [address] [place] [address]- 7[address] Mar, Dizziness R42 and Low blood sugar E16.2 [facility] [address] [address]- [address] Mar, [facility] [address] [address]- 8[address] Mar, Dizziness R42 [facility] [address] [address]- [address] Mar, Dizziness R42 and Low blood sugar [...]
--- OUTSIDE RECORDS SUMMARY | 2018-07-08 07:49 | XMS REPORT ---
Author Author JO CHANDRA Organization [facility] Address [address] [place] [address] Care Team Providers Care Mixing Machine Tender Name Role Phone JO CHANDRA Unavailable PROBLEMS Type Condition ICD9-CM Code [id number] Code Onset Dates Condition Status SNOMED Code Problem Anxiety F41.9 Active 97031226 Problem Hypoglycemia E16.2 Active 616881114 Problem Low blood sugar in diabetes E11.649 Active 010318376 ALLERGIES No Known Allergies ENCOUNTERS Encounter Location Date Diagnosis [place] [id number] [address] Dec, [facility] [address] [address] Oct, Anxiety F41.9 [facility] [address] [address] Aug, Anxiety F41.9 [facility] [address] [address] 14 Jun, 2017 Acute right hip pain M25.551 [facility] [address] [address] 14 Jun, 2017 Acute right hip pain M25.551 [facility] [address] [address] 10 May, 2017 Anxiety F41.9 and Hypoglycemia E16.2 [facility] [address] [address] Apr, [place] [address] [address] Mar, [facility] [address] [place] [address]- [address] Mar, [facility] [place] [facility] [address] [place] [place] [address]- 4[address] Mar, [facility] [place] [facility] [address] [place] [id number] [place] [place] [address]- 290[address] Mar, Screening for breast cancer Z12.31 [facility] [place] [facility] [address] [address] Feb, [facility] [place] [facility] [address] [facility] [id number] [place] [address]- [address] Feb, [facility] [place] [facility] [id number] [place] [address], [place]- [address] Feb, [facility] [place] [facility] [address] [place] [place] [address]- 82[address] Dec, [facility] [place] [facility] [address] [place] [place] [address]- 58[address] Dec, Hypoglycemia E16.2 [facility] [place] [facility] [address] [place] [place] [address]- [address] Dec, Hypoglycemia E16.2 [facility] [place] [facility] [address] [place] [place] [address]- 49[address] Dec, [facility] [place] [facility] [id number] [place] [place] [address]- 478[address] Nov, [facility] [place] [facility] [address] [place] [id number] [address]- 39[address] Nov, [facility] [place] [facility] [address] [facility] [id number] [place] [address]- 8407 Nov, [facility] [place] [facility] [address] [facility] [id number] [place] [address] Oct, [facility] [place] [facility] [address] [place] [id number] [address] September, [facility] [place] [facility] [address] [place] [id number] [address]- [address] September, [facility] [address]00565[address] [address]- [address] September, Hypoglycemia E16.2 and Weight loss R63.4 [facility] [address]00565[address] [address] Aug, [facility] [id number] [address] Jul, [facility] [address]00565[address] [address]- [address] Jun, [facility] [address] [place] [address]- [address] Jun, Hypoglycemia E16.2 [facility] [address]00565[address] [address]- 6[address] May, [facility] [id number] [address]- [address] May, [facility] [place] [address] [place] [id number] [id number] Apr, [facility] [address]00565[address] [address]- 39[address] Apr, [facility] [id number] [address]- 95[address] Mar, [facility] [id number] [address]- 8200 Mar, Dizziness R42 and Low blood sugar E16.2 [facility] [address]00565[address] [address]- 1693 Mar, [facility] [address]65[address] [address] Mar, Dizziness R42 [facility] [address]65[address] [address] [address] Mar, Dizziness R42 and Low blood sugar E16.2 IMMUNIZATIONS No Known Immunizations SOCIAL HISTORY Never Assessed REASON FOR VISIT f/u anxiety---Mik PLAN OF CARE Activity Details Follow Up 6 Months with Carla for controlled med Reason: VITAL SIGNS Height 64 in 2017-05-16 Weight 123.7 lbs 2017-05-16 Temperature 98.0 degrees Fahrenheit 2017-05-16 Heart Rate 90 bpm 2017-05-16 Respiratory Rate 20 2017-05-16 BMI 21.23 kg/m2 2017-05-16 Blood pressure systolic 118 mmHg 2017-05-16 Blood pressure diastolic 64 mmHg 2017-05-16 MEDICATIONS Medication Instructions Dosage Frequency Start Date End Date Duration Status Fluoxetine HCl 20 mg Orally Once a day 1/2 half tablet x7 days and then 1 full tablet. 24h Dec, 30 day(s) Not-Taking Ativan 1 MG Orally Once a day 1 tablet at bedtime as needed 24h 28 days Active Glucocard Expression Monitor w/Device as directed Jun, Active Symbicort 160-4.5 MCG/ACT Inhalation Twice a day 2 puffs prn 12h Not-Taking Test strips Test Strips glucocard expression test strips once daily as needed as directed Jun, Active RESULTS No Results PROCEDURES No Known [...]
--- OUTSIDE RECORDS SUMMARY | 2018-07-08 07:49 | XMS REPORT ---
Author Author JO CHANDRA [facility] Address [address] [place] [address] Care Team Providers Care Customer Operations Representative Name Role Phone JO CHANDRA Unavailable PROBLEMS Type Condition ICD9-CM Code FJP76-QB Code Onset Dates Condition Status SNOMED Code Problem Hypoglycemia E16.2 Active 940780139 Problem Low blood sugar in diabetes E11.649 Active 700756008 ALLERGIES Unknown Allergies SOCIAL HISTORY No smoking Hx information available PLAN OF CARE VITAL SIGNS MEDICATIONS Medication Instructions Dosage Frequency Start Date End Date Duration Status Ativan 1 MG Orally Once a day 1 tablet at bedtime 24h Active RESULTS No Results PROCEDURES No Known procedures IMMUNIZATIONS No Known Immunizations
--- OUTSIDE RECORDS SUMMARY | 2018-07-08 07:50 | XMS REPORT ---
Author Author JO CHANDRA [facility] Address [address] [place] [address] Care Team Providers Care Sales Clerk Supervisor Name Role Phone JO CHANDRA Unavailable PROBLEMS Type Condition ICD9-CM Code UDP28-FS Code Onset Dates Condition Status SNOMED Code Problem Hypoglycemia E16.2 Active 574121874 Problem Low blood sugar in diabetes E11.649 Active 610533814 Problem Low blood sugar E16.2 Active 750714040 ALLERGIES Unknown Allergies SOCIAL HISTORY No smoking Hx information available PLAN OF CARE VITAL SIGNS MEDICATIONS Unknown Medications RESULTS No Results PROCEDURES No Known procedures IMMUNIZATIONS No Known Immunizations
--- OUTSIDE RECORDS SUMMARY | 2018-07-08 07:50 | XMS REPORT ---
Author Author JO CHANDRA Organization [employer] Address Unknown Phone Unavailable Care Team Providers Care Wire Stretcher Name Role Phone JO CHANDRA CP Unavailable Allergies No Known Allergies Problems Problem Type Condition Code Onset Dates Condition Status Problem Low blood sugar E16.2 Active Assessment Dizziness R42 Active Problem Low blood sugar in diabetes E11.649 Active Medications No Known Medications Procedures Procedure Coding System Code Date GLYCATED HEMOGLOBIN TEST CPT-4 20734 Mar 09, 2016 COMPLETE CBC W/AUTO DIFF WBC CPT-4 49822 Mar 09, 2016 ASSAY THYROID STIM HORMONE CPT-4 71815 Mar 09, 2016 VENIPUNCT, ROUTINE* CPT-4 11268 Mar 09, 2016 COMPREHEN METABOLIC PANEL CPT-4 45302 Mar 09, 2016 Results Name Result Date Reference Range Unit Abnormality Flag ROUTINE VENIPUNCTURE Summary Purpose [employer] Submission
--- OUTSIDE RECORDS SUMMARY | 2018-07-08 07:50 | XMS REPORT ---
Author Author JO CHANDRA Organization [facility] Address [address] [place] [address] Care Team Providers Care Gear Cutting Machine Set Up Operator Name Role Phone JO CHANDRA Unavailable PROBLEMS Type Condition ICD9-CM Code UNT99-WW Code Onset Dates Condition Status SNOMED Code Problem Hypoglycemia E16.2 Active 121134936 Problem Low blood sugar in diabetes E11.649 Active 210742270 ALLERGIES No Information SOCIAL HISTORY Never Assessed [...]
--- OUTSIDE RECORDS SUMMARY | 2018-07-08 07:50 | XMS REPORT ---
Author Author JO CHANDRA Organization [facility] Address [address] [place] [address] Care Team Providers Care Evaporator Operator Molasses Name Role Phone JO CHANDRA Unavailable PROBLEMS Type Condition ICD9-CM Code PJV08-XA Code Onset Dates Condition Status SNOMED Code Problem Hypoglycemia E16.2 Active 894337672 Problem Low blood sugar in diabetes E11.649 Active 004601014 ALLERGIES No Information SOCIAL HISTORY Never Assessed PLAN OF CARE VITAL SIGNS MEDICATIONS Medication Instructions Dosage Frequency Start Date End Date Duration Status Test strips Test Strips glucocard expression test strips once daily as needed as directed Jun, Active Glucocard Expression Monitor w/Device as directed Jun, Active RESULTS No Results [...]
--- OUTSIDE RECORDS SUMMARY | 2018-07-08 07:50 | XMS REPORT ---
Author Author JO CHANDRA Organization [facility] Address [address] [place] [address] Care Team Providers Care Cafe Associate Name Role Phone JO CHANDRA Unavailable PROBLEMS Type Condition ICD9-CM Code PVX44-MD Code Onset Dates Condition Status SNOMED Code Problem Hypoglycemia E16.2 Active 422110370 Problem Low blood sugar in diabetes E11.649 Active 483760168 ALLERGIES No Information SOCIAL HISTORY Never Assessed [...]
--- OUTSIDE RECORDS SUMMARY | 2018-07-08 07:50 | XMS REPORT ---
Author Author JO HCANDRA Organization [facility] Address [address] [place] [address] Care Team Providers Care Cooking Instructor Name Role Phone JO CHANDRA Unavailable PROBLEMS Type Condition ICD9-CM Code VRE68-WT Code Onset Dates Condition Status SNOMED Code Problem Anxiety F41.9 Active 50900572 Problem Hypoglycemia E16.2 Active 722176162 Problem Low blood sugar in diabetes E11.649 Active 043543239 ALLERGIES No Known Allergies ENCOUNTERS Encounter Location Date Diagnosis [place] [address] [address] Aug, Anxiety F41.9 [facility] [address] [address]- [address] 14 Jun, 2017 Acute right hip pain M25.551 [facility] [address] [address]- [address] 14 Jun, 2017 Acute right hip pain M25.551 [place] [address] [address]- [address] 10 May, 2017 Anxiety F41.9 and Hypoglycemia E16.2 [facility] [address] [address]- [address] Apr, [facility] [address] [address] Mar, [facility] [address] [address] Mar, [place] [address] [address]- [address] Mar, [facility] [address] [address]- [address] Mar, Screening for breast cancer Z12.31 [facility] [address] [facility] [id number] [place] [address]- [address] Feb, [facility] [address] [place] [id number]- [address] Feb, [facility] [address] [place] [id number] [place] [address]- 4[address] Feb, [facility] [address] [facility] [id number] [place] [address]- 79[address] Dec, [facility] [address] [place] [address]- [address] Dec, Hypoglycemia E16.2 [facility] [address] [place] [address]- 8716 Dec, Hypoglycemia E16.2 [facility] [address] [place] [address]- 4720 Dec, [facility] [address] [place] [id number] [place] [address]- 7[address] Nov, [facility] [address] [place] [id number] [place] [address]- 0048 Nov, [facility] [address] [place] [address]- [address] Nov, [facility] [address] [place] [id number], [place] [address]- 1305 Oct, [facility] [address] [facility] [id number] [place] [address]- 3749 September, [facility] [address] [place] [id number] [place] [address]- 77[address] September, [facility] [address] [facility] [id number] [place] [address]- 3568 September, Hypoglycemia E16.2 and Weight loss R63.4 [facility] [address]005[address], [place] [address]- [address] Aug, [facility] [address], [place] [address]- [address] Jul, [facility] [address]00565[address] [address] Jun, [facility] [address] Jun, Hypoglycemia E16.2 [facility] [address]005[address], [place] [address]- 0083 May, [facility] [address] [place] [address]- 14[address] May, [facility] [address] [facility] [id number] [place] [id number] Apr, [facility] [address] [place] [address]- 2858 Apr, [facility] [address], [place] [address]- 137[address] Mar, [facility] [address], [place] [address]- 2842 Mar, Dizziness R42 and Low blood sugar E16.2 [facility] [address], [place] [address]- 160[address] Mar, [facility] [address], [place] [address]- 5268 Mar, Dizziness R42 [facility] [address], [place] [address]- 4[address] Mar, Dizziness R42 and Low blood sugar E16.2 IMMUNIZATIONS No Known Immunizations SOCIAL HISTORY Never Assessed REASON FOR VISIT Weight loss concerns -- cristóbal devi PLAN OF CARE Activity Details Follow Up 4 Weeks with [facility] f/u diet log and blood sugars Reason: VITAL SIGNS Height 64 in 2016-09-21 Weight 117.6 lbs 2016-09-21 Temperature 98.0 degrees Fahrenheit 2016-09-21 BMI 20.18 kg/m2 2016-09-21 Blood pressure systolic 122 mmHg 2016-09-21 Blood pressure diastolic 80 mmHg 2016-09-21 MEDICATIONS Medication Instructions Dosage Frequency Start Date [...] shoulder surgery 2005 Surgical History Hiatal Hernia 2015 Surgical History cholecystectomy 2016 Surgical History Tubal ligation Hospitalization History with child and surgeries listed above. Hospitalization History Hernia issues
--- OUTSIDE RECORDS SUMMARY | 2018-07-08 07:50 | XMS REPORT ---
Author Author JO CHANDRA Organization [facility] [place] [facility] Address [address] [place] [address] Care Team Providers Care Social Insurance Administrator Name Role Phone JO CHANDRA Unavailable PROBLEMS Type Condition ICD9-CM Code [id number] Code Onset Dates Condition Status SNOMED Code Problem Anxiety F41.9 Active 15019469 Problem Hypoglycemia E16.2 Active 318491844 Problem Low blood sugar in diabetes E11.649 Active 282856638 ALLERGIES No Information ENCOUNTERS Encounter Location Date Diagnosis [place] [address] [address] Aug, Anxiety F41.9 [facility] [place] [facility] [address] [address] 14 Jun, 2017 Acute right hip pain M25.551 [facility] [place] [facility] [address] [address] 14 Jun, 2017 Acute right hip pain M25.551 [facility] [place] [facility] [address] [address] 10 May, 2017 Anxiety F41.9 and Hypoglycemia E16.2 [facility] [place] [facility] [address] [address] Apr, [facility] [place] [facility] [address] [address] Mar, [facility] [place] [facility] [address] [address] Mar, [place] [address] [address] Mar, [facility] [place] [facility] [address] [address] Mar, Screening for breast cancer Z12.31 [facility] [place] [facility] [address] [place] [id number] [place] [address] Feb, [facility] [place] [facility] [address] [place] [id number] [address] Feb, [facility] [place] [facility] [id number] [place] [address] Feb, [facility] [place] [facility] [address] [facility] [id number] [place] [address] Dec, [facility] [place] [facility] [id number] [place] [address], [place] [address] Dec, Hypoglycemia E16.2 [facility] [place] [facility] [address] [place] [id number] [place] [address] Dec, Hypoglycemia E16.2 [facility] [place] [facility] [id number] [place] [address] Dec, [facility] [facility] [address] [place] [id number] [place] [address] Nov, [facility] [place] [facility] [address] [place] [id number] [place] [address] Nov, [facility] [place] [facility] [id number] [place] [address] Nov, [facility] [place] [facility] [address] [place] [id number] [address] Oct, [facility] [place] [facility] [address] [facility] [id number] [place] [address] September, [facility] [place] [facility] [address] [place] [id number] [address] September, [facility] [place] [facility] [address] [facility] [id number] [place] [address] September, Hypoglycemia E16.2 and Weight loss R63.4 [facility] [place] [facility] [id number] [address] Aug, [facility] [place] [facility] [id number] [address] Jul, [facility] [place] [facility] [id number] [address] Jun, [facility] [place] [facility] [id number] [address] Jun, Hypoglycemia E16.2 [facility] [facility] [id number] [address] May, [facility] [place] [facility] [id number] [address] May, [facility] [address] [facility] [id number] [place] [id number] Apr, [facility] [facility] [id number] [address] Apr, [facility] [place] [facility] [id number] [address] Mar, [facility] [place] [facility] [id number] [address] Mar, Dizziness R42 and Low blood sugar E16.2 [facility] [place] [facility] [id number] [address] Mar, [facility] [facility] [address] [place] [id number] [address] Mar, Dizziness R42 [facility] [place] [facility] [address] [place] [id number] [address] Mar, Dizziness R42 and Low blood sugar E16.2 IMMUNIZATIONS No Known Immunizations SOCIAL HISTORY Never Assessed REASON FOR VISIT Lab (walk-in) PLAN OF CARE VITAL SIGNS MEDICATIONS Medication Instructions Dosage Frequency Start Date End Date Duration Status Ativan 1 MG Orally Once a day 1 tablet at bedtime as needed 24h 28 days Active Fluoxetine HCl 20 mg Orally Once a day 1/2 half tablet x7 days and then 1 full tablet. 24h Dec, 30 day(s) Active RESULTS Name Result Date Reference Range C-PEPTIDE, SERUM 2016-12-29 C-Peptide, Serum 2.6 1.1-4.4 CORTISOL, SERUM-AM 2016-12-29 Cortisol - AM 14.9 6.2-19.4 A1C 2016-12-29 Hemoglobin A1c 5.6 4.8-5.6 TSH 2016-12-29 TSH 1.550 0.450-4.500 CMP 2016-12-29 Glucose, Serum 99 65-99 BUN 12 6-24 Creatinine, Serum 0.49 0.57-1.00 eGFR If NonAfricn Am 107 >59 eGFR If Africn Am 123 >59 BUN/Creatinine Ratio 24 9-23 Sodium, Serum 141 134-144 Potassium, Serum 4.5 3.5-5.2 Chloride, Serum 101 96-106 Carbon Dioxide, Total 24 18-29 Calcium, Serum 9.1 8.7-10.2 Protein, Total, Serum 6.6 6.0-8.5 Albumin, Serum 4.2 3.5-5.5 Globulin, Total 2.4 1.5-4.5 A/G Ratio 1.8 1.2-2.2 Bilirubin, Total 0.3 0.0-1.2 Alkaline Phosphatase, S 91 39-117 AST (SGOT) 24 0-40 ALT (SGPT) 21 0-32 PROCEDURES Procedure Date Ordered Result Body Site ASSAY OF C-PEPTIDE Dec 29, 2016 TOTAL CORTISOL Dec 29, 2016 ASSAY THYROID STIM HORMONE Dec 29, 2016 Hemoglobin Test Send Out 0 dollar Dec 29, 2016 VENIPUNCT, ROUTINE* Dec 29, 2016 COMPREHEN METABOLIC PANEL Dec 29, 2016 INSTRUCTIONS MEDICATIONS ADMINISTERED No Known Medications MEDICAL [...]
--- OUTSIDE RECORDS SUMMARY | 2018-07-08 07:51 | XMS REPORT | Continuity of Care Document ---
Author Author [facility] Organization [facility] Address Unknown Phone Unavailable Allergies Active Description Code Type Severity Reaction Onset Reported/Identified Relationship to Patient Clinical Status Yes No Known Drug Allergies [id number] Drug Allergy Unknown N/A 02/23/2010 Medications There is no data. Problems Date Dx Coded Attending Type Code Diagnosis Diagnosed By 02/23/2010 Ot 305.1 02/23/2010 Ot 493.90 02/23/2010 Ot 786.05 08/04/2011 Ot 305.1 TOBACCO USE DISORDER 08/04/2011 Ot 401.9 HYPERTENSION NOS 08/04/2011 Ot 491.21 OBSTR CHRONIC BRONCHITIS, W (ACUTE) EXAC 08/04/2011 Ot V03.82 PROPHYLACTIC VACC AGAINST STREPTOCOCCUS 03/17/2012 Ot 305.1 TOBACCO USE DISORDER 03/17/2012 Ot 466.0 ACUTE BRONCHITIS 03/17/2012 Ot 493.90 ASTHMA, UNSPECIFIED 03/17/2012 Ot 564.00 UNSPEC CONSTIPATION 03/17/2012 Ot 786.2 COUGH 04/12/2012 Ot 530.11 REFLUX ESOPHAGITIS 04/12/2012 Ot 535.50 UNSP GASTRITIS GASTRODUODENITIS W/O ME 04/12/2012 Ot 553.3 DIAPHRAGMATIC HERNIA 01/28/2013 TESSACATRACHITA Mccollum DO Ot 564.00 UNSPEC CONSTIPATION 01/28/2013 CATRACHITA ZARATE DO Ot 599.0 URIN TRACT INFECTION NOS 01/28/2013 CATRACHITA ZARATE DO Ot 789.06 ABDOMINAL PAIN, EPIGASTRIC 01/31/2014 GELY NJ, TONY Quesada Ot 491.20 OBSTR CHRONIC BRONCHITIS, W/O EXACERBATI 01/31/2014 GELY NJ, TONY Quesada Ot 530.81 ESOPHAGEAL REFLUX 01/31/2014 GELY NJ, TONY Quesada Ot 553.3 DIAPHRAGMATIC HERNIA 01/31/2014 GELY NJ, TONY Quesada Ot 564.00 UNSPEC CONSTIPATION 01/31/2014 GELY NJ, TONY R Ot 789.06 ABDOMINAL PAIN, EPIGASTRIC 09/16/2014 Ot 786.2 09/16/2014 Ot V76.12 09/16/2014 Ot V72.84 10/15/2014 GELY NJ, TONY R Ot V76.12 10/26/2014 GELY NJ, TONY R Ot 300.00 10/26/2014 GELY NJ, TONY R Ot 491.20 10/26/2014 GELY NJ, TONY R Ot 530.81 10/26/2014 GELY NJ, TONY R Ot 553.3 10/26/2014 GELY NJ, TONY R Ot 558.9 10/26/2014 GELY NJ, TONY R Ot 564.1 10/26/2014 GELY NJ, TONY R Ot V15.82 10/29/2014 GELY NJ, TONY R Ot 300.00 ANXIETY STATE NOS 10/29/2014 GELY NJ, TONY R Ot 491.20 OBSTR CHRONIC BRONCHITIS, W/O EXACERBATI 10/29/2014 GELY NJ, TONY R Ot 530.81 ESOPHAGEAL REFLUX 10/29/2014 GELY NJ, TONY R Ot 553.3 DIAPHRAGMATIC HERNIA 10/29/2014 GELY NJ, TONY R Ot 558.9 NONINF GASTROENTERIT NEC 10/29/2014 GELY NJ, TONY R Ot 564.1 IRRITABLE BOWEL SYNDROME 10/29/2014 GELY NJ, TONY R Ot V15.82 HISTORY OF TOBACCO USE 10/29/2014 Ot 786.2 10/29/2014 Ot V76.12 10/29/2014 Ot V72.84 10/29/2014 GELY NJ, TONY R Ot V76.12 02/16/2015 ANIL JACKSON DO Ot K21.9 GASTRO-ESOPHAGEAL REFLUX DISEASE WITHOUT 02/16/2015 ANIL JACKSON DO Ot K44.9 DIAPHRAGMATIC HERNIA WITHOUT OBSTRUCTION 03/12/2015 ANIL JACKSON DO Ot K21.9 GASTRO-ESOPHAGEAL REFLUX DISEASE WITHOUT 03/12/2015 ANIL JACKSON DO Ot K44.9 DIAPHRAGMATIC HERNIA WITHOUT OBSTRUCTION 03/30/2015 ANIL JACKSON DO Ot K21.9 03/30/2015 ANIL JACKSON DO Ot K44.9 03/30/2015 [facility], SUSANROUTIE Ot Z01.812 03/30/2015 [facility] DO, CHANDROUTIE Ot Z11.2 04/29/2015 Ot 786.2 04/29/2015 Ot V76.12 04/29/2015 Ot V72.84 04/29/2015 GELY NJ, TONY R Ot V76.12 04/29/2015 [facility], ANIL Ot K21.9 04/29/2015 [facility], SUSANROUTIE Ot K44.9 04/29/2015 [facility], SUSANROUTIE Ot Z01.818 04/29/2015 [facility], SUSANROUTIE Ot K21.9 04/29/2015 [facility], DONATOTIE Ot K44.9 04/29/2015 [facility], SUSANROUTIE Ot Z01.812 04/29/2015 [facility], ANIL Ot Z11.2 05/06/2015 [facility], ANIL Ot K22.10 ULCER OF ESOPHAGUS WITHOUT BLEEDING 05/06/2015 [facility], ANIL Ot K80.10 CALCULUS OF GALLBLADDER W CHRONIC CHOLEC 05/14/2015 [facility], ANIL Ot K80.20 05/14/2015 [facility], DONATOTIE Ot K80.20 05/14/2015 [facility], ANIL Ot R11.0 05/14/2015 [facility], ANIL Ot Z01.812 05/14/2015 [facility], ANIL Ot Z11.2 12/03/2015 Ot V76.12 OT SCREEN MAMMO-MALIGN NEOPLASM OF GHADA 12/03/2015 Ot V72.84 EXAM PRE- OPERATIVE NOS 12/03/2015 [place], TONY R Ot V76.12 OT SCREEN MAMMO-MALIGN NEOPLASM OF GHADA 12/03/2015 [facility], ANIL Ot K21.9 GASTRO-ESOPHAGEAL REFLUX DISEASE WITHOUT 12/03/2015 [facility], ANIL Ot K44.9 DIAPHRAGMATIC HERNIA WITHOUT OBSTRUCTION 12/03/2015 [facility], ANIL Ot Z01.818 ENCOUNTER FOR OTHER PREPROCEDURAL EXAMIN 12/03/2015 RENETTAANIL HOOD DO Ot K21.9 GASTRO-ESOPHAGEAL REFLUX DISEASE WITHOUT 12/03/2015 RENETTAANIL HOOD DO, Ot K44.9 DIAPHRAGMATIC HERNIA WITHOUT OBSTRUCTION 12/03/2015 RENETTAANIL HOOD DO, Ot Z01.812 ENCOUNTER FOR PREPROCEDURAL LABORATORY E 12/03/2015 [facility] ANIL FLETCHER Ot Z11.2 ENCOUNTER FOR SCREENING FOR OTHER BACTER 12/03/2015 [place] ANIL FLETCHER Ot K80.20 CALCULUS OF GALLBLADDER W/O CHOLECYSTITI 12/03/2015 [facility] DOANIL Ot K80.20 CALCULUS OF GALLBLADDER W/O CHOLECYSTITI 12/03/2015 [facility] ANIL FLETCHER Ot R11.0 NAUSEA 12/03/2015 [place] ANIL FLETCHER Ot Z01.812 ENCOUNTER FOR PREPROCEDURAL LABORATORY E 12/03/2015 [facility] ANIL FLETCHER Ot Z11.2 ENCOUNTER FOR SCREENING FOR OTHER BACTER 12/06/2015 [place], TONY Quesada Ot Z12.31 ENCNTR SCREEN MAMMOGRAM FOR MALIGNANT NE 03/16/2017 Ot V76.12 OTH SCREEN MAMMO-MALIGN NEOPLASM OF GHADA 03/16/2017 Ot V72.84 EXAM PRE- OPERATIVE NOS 03/16/2017 [place] [place], TONY Quesada Ot V76.12 OT SCREEN MAMMO-MALIGN NEOPLASM OF GHADA 03/16/2017 RENETTAANIL HOOD DO, Ot K21.9 GASTRO-ESOPHAGEAL REFLUX DISEASE WITHOUT 03/16/2017 RENETTAANIL HOOD DO, Ot K44.9 DIAPHRAGMATIC HERNIA WITHOUT OBSTRUCTION 03/16/2017 RENETTAANIL HOOD DO, Ot Z01.818 ENCOUNTER FOR OTHER PREPROCEDURAL EXAMIN 03/16/2017 [place] ANIL FLETCHER Ot K21.9 GASTRO-ESOPHAGEAL REFLUX DISEASE WITHOUT 03/16/2017 RENETTAANIL HOOD DO Ot K44.9 DIAPHRAGMATIC HERNIA WITHOUT OBSTRUCTION 03/16/2017 RENETTAANIL HOOD DO, Ot Z01.812 ENCOUNTER FOR PREPROCEDURAL LABORATORY E 03/16/2017 [facility] ANIL FLETCHER Ot Z11.2 ENCOUNTER FOR SCREENING FOR OTHER BACTER 03/16/2017 [place] ANIL FLETCHER Ot K80.20 CALCULUS OF GALLBLADDER W/O CHOLECYSTITI 03/16/2017 ANIL JACKSON DO Ot K80.20 CALCULUS OF GALLBLADDER W/O CHOLECYSTITI 03/16/2017 ANIL JACKSON DO Ot R11.0 NAUSEA 03/16/2017 ANIL JACKSON DO Ot Z01.812 ENCOUNTER FOR PREPROCEDURAL LABORATORY E 03/16/2017 ANIL JACKSON DO Ot Z11.2 ENCOUNTER FOR SCREENING FOR OTHER BACTER 03/16/2017 [facility] [place], TONY R Ot Z12.31 ENCNTR SCREEN MAMMOGRAM FOR MALIGNANT NE 06/25/2018 JOYA LO Ot F17.200 NICOTINE DEPENDENCE, UNSPECIFIED, UNCOMP 06/25/2018 JOYA LO Ot F41.9 ANXIETY DISORDER, UNSPECIFIED 06/25/2018 JOYA LO Ot J21.9 ACUTE BRONCHIOLITIS, UNSPECIFIED 06/25/2018 JOYA LO Ot J44.0 CHRONIC OBSTRUCTIVE PULMON DISEASE W ACU 06/25/2018 JOYA LO Ot R06.02 SHORTNESS OF BREATH 06/25/2018 JOYA LO Ot Z79.51 GIMP TACKER (CURRENT) USE OF INHALED STERO 06/25/2018 JOYA LO Ot Z80.3 FAMILY HISTORY OF MALIGNANT NEOPLASM OF 06/25/2018 JOYA LO Ot Z85.828 PERSONAL HISTORY OF OTHER MALIGNANT NEOP 06/25/2018 JOYA LO Ot Z86.718 PERSONAL HISTORY OF OTHER VENOUS THROMBO 06/25/2018 JOYA LO Ot Z87.01 PERSONAL HISTORY OF PNEUMONIA (RECURRENT 06/25/2018 JOYA LO Ot Z90.49 ACQUIRED ABSENCE OF OTHER SPECIFIED PART 06/25/2018 JOYA LO Ot Z90.710 ACQUIRED ABSENCE OF BOTH CERVIX AND UTER 06/25/2018 JOYA LO Ot Z90.89 ACQUIRED ABSENCE OF OTHER ORGANS 06/25/2018 JOYA LO Ot Z98.51 TUBAL LIGATION STATUS Procedures There is no data. Results Test Result Range CMP - 12/29/16 08:10 Glucose, Serum 99 mg/dL 65-99 BUN 12 mg/dL 6-24 Creatinine, Serum 0.49 mg/dL 0.57-1.00 eGFR If NonAfricn Am 107 mL/min/1.73 >59 eGFR If Africn Am 123 mL/min/1.73 >59 BUN/Creatinine Ratio 24 9-23 Sodium, Serum 141 mmol/L 134-144 Potassium, Serum 4.5 mmol/L 3.5-5.2 Chloride, Serum 101 mmol/L 96-106 Carbon Dioxide, Total 24 mmol/L 18-29 Calcium, Serum 9.1 mg/dL 8.7-10.2 Protein, Total, Serum 6.6 g/dL 6.0-8.5 Albumin, Serum 4.2 g/dL 3.5-5.5 Globulin, Total 2.4 g/dL 1.5-4.5 A/G Ratio 1.8 1.2-2.2 Bilirubin, Total 0.3 mg/dL 0.0-1.2 Alkaline Phosphatase, S 91 IU/L 39-117 AST (SGOT) 24 IU/L 0-40 ALT (SGPT) 21 IU/L 0-32 Comp. Metabolic Panel (14) - 12/29/16 08:10 Glucose, Serum 99 mg/dL 65-99 BUN 12 mg/dL 6-24 Creatinine, Serum 0.49 mg/dL 0.57-1.00 eGFR If NonAfricn Am 107 mL/min/1.73 >59 eGFR If Africn Am 123 mL/min/1.73 >59 BUN/Creatinine Ratio 24 9-23 Sodium, Serum 141 mmol/L 134-144 Potassium, Serum 4.5 mmol/L 3.5-5.2 Chloride, Serum 101 mmol/L 96-106 Carbon Dioxide, Total 24 mmol/L 18-29 Calcium, Serum 9.1 mg/dL 8.7-10.2 Protein, Total, Serum 6.6 g/dL 6.0-8.5 Albumin, Serum 4.2 g/dL 3.5-5.5 Globulin, Total 2.4 g/dL 1.5-4.5 A/G Ratio 1.8 1.2-2.2 Bilirubin, Total 0.3 mg/dL 0.0-1.2 Alkaline Phosphatase, S 91 IU/L 39-117 AST (SGOT) 24 IU/L 0-40 ALT (SGPT) 21 IU/L 0-32 Hemoglobin A1c - 12/29/16 08:10 Hemoglobin A1c 5.6 % 4.8-5.6 TSH - 12/29/16 08:10 TSH 1.550 uIU/mL 0.450-4.500 C-Peptide, Serum - 12/29/16 08:10 C-Peptide, Serum 2.6 ng/mL 1.1-4.4 Cortisol - AM - 12/29/16 08:10 Cortisol - AM 14.9 ug/dL 6.2-19.4 Complete blood count (CBC) with automated white blood cell (WBC) differential - 06/23/18 11:30 Blood leukocytes automated count (number/volume) 6.3 10*3/uL 4.3-11.0 Blood erythrocytes automated count (number/volume) 4.70 10*6/uL 4.35-5.85 Venous blood hemoglobin measurement (mass/volume) 14.2 g/dL 11.5-16.0 Blood hematocrit (volume fraction) 42 % 35-52 Automated erythrocyte mean corpuscular volume 89 [foz_us] 80-99 Automated erythrocyte mean corpuscular hemoglobin (mass per erythrocyte) 30 pg 25-34 Automated erythrocyte mean corpuscular hemoglobin concentration measurement ( mass/volume) 34 g/dL 32-36 Automated erythrocyte distribution width ratio 12.6 % 10.0-14.5 Automated blood platelet count (count/volume) 263 10*3/uL 130-400 Automated blood platelet mean volume measurement 9.0 [foz_us] 7.4-10.4 Automated blood neutrophils/100 leukocytes 52 % 42-75 Automated blood lymphocytes/100 leukocytes 23 % 12-44 Blood monocytes/100 leukocytes 9 % 0-12 Automated blood eosinophils/100 leukocytes 16 % 0-10 Automated blood basophils/100 leukocytes 0 % 0-10 Blood neutrophils automated count (number/volume) 3.3 10*3 1.8-7.8 Blood lymphocytes automated count (number/volume) 1.5 10*3 1.0-4.0 Blood monocytes automated count (number/volume) 0.6 10*3 0.0-1.0 Automated eosinophil count 1.0 10*3/uL 0.0-0.3 Automated blood basophil count (count/volume) 0.0 10*3/uL 0.0-0.1 Blood lactic acid measurement (moles/volume) - 06/23/18 11:30 Blood lactic acid measurement (moles/volume) 1.16 mmol/L 0.50-2.00 Comprehensive metabolic panel - 06/23/18 11:30 Serum or plasma sodium measurement (moles/volume) 139 mmol/L 135-145 Serum or plasma potassium measurement (moles/volume) 4.4 mmol/L 3.6-5.0 Serum or plasma chloride measurement (moles/volume) 105 mmol/L 98-107 Carbon dioxide 23 mmol/L 21-32 Serum or plasma anion gap determination (moles/volume) 11 mmol/L 5-14 Serum or plasma urea nitrogen measurement (mass/volume) 11 mg/dL 7-18 Serum or plasma creatinine measurement (mass/volume) 0.60 mg/dL 0.60-1.30 Serum or plasma urea nitrogen/creatinine mass ratio 18 NRG Serum or plasma creatinine measurement with calculation of estimated glomerular filtration rate > NRG Serum or plasma glucose measurement (mass/volume) 96 mg/dL 70-105 Serum or plasma calcium measurement (mass/volume) 9.8 mg/dL 8.5-10.1 Serum or plasma total bilirubin measurement (mass/volume) 0.5 mg/dL 0.1-1.0 Serum or plasma alkaline phosphatase measurement (enzymatic activity/volume) 96 U/L 40-136 Serum or plasma aspartate aminotransferase measurement (enzymatic activity/ volume) 19 U/L 5-34 Serum or plasma alanine aminotransferase measurement (enzymatic activity/volume ) 15 U/L 0-55 Serum or plasma protein measurement (mass/volume) 6.6 g/dL 6.4-8.2 Serum or plasma albumin measurement (mass/volume) 4.2 g/dL 3.2-4.5 CALCIUM CORRECTED 9.6 mg/dL 8.5-10.1 Serum or plasma lithium measurement (moles/volume) - 06/23/18 11:30 BNP level 26.5 pg/mL <100.0 Blood manual differential performed detection - 06/23/18 11:30 Blood monocytes/100 leukocytes 1 % NRG Manual blood segmented neutrophils/100 leukocytes 49 % NRG Blood band neutrophils/100 leukocytes 1 % NRG Manual blood lymphocytes/100 leukocytes 28 % NRG Manual eosinophils/100 leukocytes in nose 18 % NRG Blood erythrocyte morphology finding identification NORMAL NRG Blood hypersegmented neutrophils detection by light microscopy MODERATE NRG Fibrin D-dimer FEU measurement in platelet poor plasma (mass/volume) - 11:30 Fibrin D-dimer FEU measurement in platelet poor plasma (mass/volume) 0.30 ug/mL 0.00-0.49 Bacterial blood culture - 06/23/18 11:30 Bacterial blood culture NG NRG Bacterial blood culture - 06/23/18 11:56 Bacterial blood culture NG NRG Encounters ACCT No. Visit Date/Time Discharge Status Pt. Type Provider Facility Loc./Unit Complaint [id number] 06/23/2018 11:05:00 06/23/2018 14:08:00 DIS Outpatient JOYA LO [facility] ER SOA [id number] 03/16/2017 12:08:00 03/16/2017 23:59:59 CLS Outpatient PRATEEK NJ, JO Quesaad [facility] RAD Z12.31 [id number] 12/03/2015 12:59:00 12/03/2015 23:59:59 CLS Outpatient GELY NJ, TONY Quesada [facility] RAD SCREENING [id number] 05/06/2015 10:48:00 05/06/2015 18:10:00 DIS Outpatient RENETTA DO, CHANDROUTIE [facility] SDC GALLSTONES, NAUSEA [id number] 05/04/2015 13:13:00 05/04/2015 23:59:59 CLS Outpatient RENETTA DO, CHANDROUTIE [facility] PREOP GALLSTONES, NAUSEA [id number] 04/29/2015 07:28:00 04/29/2015 23:59:59 CLS Outpatient RENETTA DO, CHANDROUTIE [facility] RAD NAUSEA [id number] 03/11/2015 11:20:00 03/12/2015 17:01:00 DIS Outpatient RENETTA DO, CHANDROUTIE [facility] SDC HIATAL HERNIA [id number] 03/10/2015 08:50:00 03/10/2015 23:59:59 CLS Outpatient RENETTA DO, CHANDROUTIE [facility] PREOP HIATAL HERNIA [id number] 02/16/2015 10:31:00 02/16/2015 13:35:00 DIS Outpatient RENETTA DO, CHANDROUTIE [facility] SDC GERD/HIATAL HERNIA [id number] 02/11/2015 05:39:00 02/11/2015 23:59:59 CLS Outpatient ANIL JACKSON DO [facility] PREOP GERD/HIATAL HERNIA [id number] 10/25/2014 00:07:00 10/29/2014 09:10:00 DIS Inpatient TONY HONG MD [facility] SURGICAL COLITIS WITH BLOODY DIARRHEA [id number] 09/16/2014 15:14:00 09/16/2014 23:59:59 CLS Outpatient TONY HONG MD [facility] RAD SCREENING [id number] 01/29/2014 15:51:00 01/31/2014 12:50:00 DIS Inpatient TONY HONG MD [facility] SURGICAL ABD PAIN,REFLUX [id number] 01/28/2013 07:15:00 01/28/2013 10:40:00 DIS Emergency TESSA CATRACHITA [facility] ER LEFT SIDE/RIB PAIN [id number] 04/12/2012 10:02:00 Document Registration [id number] 04/11/2012 07:15:00 Document Registration [id number] 03/17/2012 10:38:00 Document Registration [id number] 10/27/2011 13:38:00 Document Registration [id number] 08/02/2011 14:27:00 Document Registration [id number] 02/23/2010 07:32:00 Document Registration [id number] 01/24/2010 13:18:00 Document Registration [id number] 06/28/2018 13:40:00 06/28/2018 23:59:59 CLS Outpatient JO CHANDRA [facility] [id number] 12/29/2016 08:00:00 Document Registration [id number] 01/01/2017 18:08:00 Document Registration
[2018-07-08] MEDS ORDERED: NS IV 1000 ML 1,000 ML IV ONE (07:58)
[2018-07-08] MEDS ORDERED: RT-ALBUTEROL/IPRATROPIUM 3 ML (DUONEB) VIAL INH ONE (08:00)
--- NOTE | 2018-07-08 08:05 | ED Respiratory ---
General Chief Complaint: Respiratory Problems Stated Complaint: COUGH;SOA Nursing Triage Note: PT BROUGHT TO ROOM 7 BY WHEELCHAIR WITH COMPLAINT OF SOA. PT STATES SHE HAS BEEN DEALING WITH RESP ISSUES SINCE . PT STATES SHE WAS STARTING TO FEEL BETTER BUT WORSENED THIS MORNING. Source: patient Exam Limitations: no limitations History of Present Illness Date Seen by Provider: Jul 08, 2018 Time Seen by Provider: 07:46 Initial Comments This 62-year-old woman presents to the emergency room with complaints of shortness of breath and wheezing as well as coughing fits this morning. She has been struggling with respiratory problems since March. She quit smoking in April. She denies any fever. She has had no official diagnosis of COPD although she is using an albuterol inhaler, albuterol nebulizer treatments, and Spiriva. She's had multiple encounters over the last few months at the [facility] clinic in the [facility] as well as the emergency room. She has been on a couple rounds of antibiotics and steroids as well. She has also used Afrin nasal spray through the weekend. She is noted to be a little tachycardic this morning. She is tight and wheezy on exam despite using a nebulizer treatment this morning at home. She denies any lower extremity pain or edema. Allergies and Home Medications Allergies Coded Allergies: No Known Drug Allergies (Unverified , 02/23/10) Home Medications Albuterol 17 Gm Aerosol, 2 PUFF IH Q4H PRN for SHORTNESS OF BREATH, (Reported) Albuterol Sulfate 1.25 Mg/3 Ml Vial.neb, 1.25 MG INH Q4H PRN for SHORTNESS OF BREATH Prescribed by: JOYA LO on 06/23/18 140 Fluticasone/Vilanterol 1 Each Blst.w.dev, 1 EACH IH DAILY Prescribed by: LULY KENDALL on 07/08/18 09 Lorazepam 1 Mg Tablet, 1 MG PO HS, (Reported) Prednisone 20 Mg Tab, 40 MG PO DAILY Prescribed by: JOYA LO on 06/23/181 Prednisone 20 Mg Tab, 20 MG PO DAILY Take 3 tabs(60mg)daily,decrease by 1/2 tab(10mg)every other day. Prescribed by: LULY KENDALL on 07/08/18922 Patient Home Medication List Home Medication List Reviewed: Yes Review of Systems Review of Systems Constitutional: no symptoms reported EENTM: no symptoms reported Respiratory: see HPI Cardiovascular: no symptoms reported Gastrointestinal: no symptoms reported Genitourinary: no symptoms reported : No Musculoskeletal: no symptoms reported Skin: no symptoms reported Psychiatric/Neurological: No Symptoms Reported Hematologic/Lymphatic: No Symptoms Reported Immunological/Allergic: no symptoms reported Past Esrdcqr-Hkmnlo-Fcjmwg Hx Past Med/Social Hx: Reviewed and Corrections made Patient Social History Alcohol Use: Denies Use Recreational Drug Use: No Smoking Status: Former Smoker (quit April 2018) Former Smoker, Quit: May 01, 2018 Recent Foreign Travel: No Contact w/Someone Who Travel: No Recent Infectious Disease Expo: No Recent Hopitalizations: No Immunizations Up To Date Tetanus Booster (TDap): Unknown PED Vaccines UTD: No Date of Pneumonia Vaccine: Apr 23, 2013 Date of Influenza Vaccine: Feb 02, 2015 Past Medical History Surgeries: Yes (EGD/COLONOSCOPY, WISDOM TEETH &TOP TEETH REMOVED. 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 6.0oz. [id number]; 24.89 BMI Method:Stated General Appearance: WD/WN, mild distress HEENT: PERRL/EOMI, normal ENT inspection, TMs normal, other (oropharynx somewhat dry) Neck: normal inspection Respiratory: no respiratory distress, no accessory muscle use, decreased breath sounds, wheezing Cardiovascular: regular rate, rhythm, no edema, no murmur Gastrointestinal: normal bowel sounds, non tender, soft Extremities: normal inspection, no pedal edema Neurologic/Psychiatric: jumpbasting lining baster II-XII nml as tested, no motor/sensory deficits, alert, normal mood/affect, oriented x 3 Skin: normal color, warm/dry Progress/Results/Core Measures Suspected Sepsis Recent Fever Within 48 Hours: No Infection Criteria Present: None New/Unexplained Altered Menta: No Sepsis Screen: No Definite Risk SIRS Temperature:97.1 Pulse: 92 Respiratory Rate: 22 Laboratory Tests 07/08/18 08:10: White Blood Count 9.0 Blood Pressure 142 /69 Mean: 93 Laboratory Tests 07/08/18 08:10: Creatinine 0.70, Platelet Count 317, Total Bilirubin 0.4 Results/Orders Lab Results Laboratory Tests Test 07/08/18 08:10 Range/Units White Blood Count 9.0 4.3-11.0 10^3/uL Red Blood Count 4.67 4.35-5.85 10^6/uL Hemoglobin 13.7 11.5-16.0 G/DL Hematocrit 43 35-52 % Mean Corpuscular Volume 92 80-99 FL Mean Corpuscular Hemoglobin 29 25-34 PG Mean Corpuscular Hemoglobin Concent 32 32-36 G/DL Red Cell Distribution Width 12.8 10.0-14.5 % Platelet Count 317 130-400 10^3/uL Mean Platelet Volume 9.2 7.4-10.4 FL Neutrophils (%) (Auto) 63 42-75 % Lymphocytes (%) (Auto) 19 12-44 % Monocytes (%) (Auto) 7 0-12 % Eosinophils (%) (Auto) 11 H 0-10 % Basophils (%) (Auto) 0 0-10 % Neutrophils # (Auto) 5.6 1.8-7.8 X 10^3 Lymphocytes # (Auto) 1.7 1.0-4.0 X 10^3 Monocytes # (Auto) 0.6 0.0-1.0 X 10^3 Eosinophils # (Auto) 1.0 H 0.0-0.3 10^3/uL Basophils # (Auto) 0.0 0.0-0.1 10^3/uL Sodium Level 140 135-145 MMOL/L Potassium Level 4.0 3.6-5.0 MMOL/L Chloride Level 106 98-107 MMOL/L Carbon Dioxide Level 24 21-32 MMOL/L Anion Gap 10 5-14 MMOL/L Blood Urea Nitrogen 13 7-18 MG/DL Creatinine 0.70 0.60-1.30 MG/DL Estimat Glomerular Filtration Rate > 60 BUN/Creatinine Ratio 19 Glucose Level 106 H 70-105 MG/DL Calcium Level 9.4 8.5-10.1 MG/DL Corrected Calcium 9.1 8.5-10.1 MG/DL Total Bilirubin 0.4 0.1-1.0 MG/DL Aspartate Amino Transf (AST/SGOT) 18 5-34 U/L Alanine Aminotransferase (ALT/SGPT) 12 0-55 U/L Alkaline Phosphatase 83 40-136 U/L C-Reactive Protein High Sensitivity 0.13 0.00-0.50 MG/DL Total Protein 7.0 6.4-8.2 GM/DL Albumin 4.4 3.2-4.5 GM/DL Micro Results Microbiology 07/08/18 Influenza Types A,B Antigen (DAVION) - Final, Complete My Orders Orders - LULY VASQUEZ MD Saline Lock/Iv-Start (07/08/18 07:58) Ns Iv 1000 Ml (Sodium Chloride 0.9%) (07/08/18 07:58) Cbc With Automated Diff (07/08/18 07:58) Comprehensive Metabolic Panel (07/08/18 07:58) Hs C Reactive Protein (07/08/18 07:58) Influenza A And B Antigens (07/08/18 07:58) Chest Pa/Lat (2 View) (07/08/18 07:58) Albuterol/Ipra Inhalation Soln (Duoneb I (07/08/18 08:00) Medications Given in ED Current Medications Medications Dose Ordered Sig/Katie Route Start Time Stop Time Status Last Admin Dose Admin Albuterol/ Ipratropium 3 ml ONCE ONCE INH 07/08/18 08:00 07/08/18 08:01 DC 07/08/18 08:15 3 ML Sodium Chloride 1,000 ml @ 0 mls/hr Q0M ONCE IV 07/08/18 07:58 07/08/18 07:59 DC 07/08/18 08:15 1,000 MLS/HR Vital Signs/I&O 07/08/18 07/08/18 07:46 08:15 Temp 97.1 Pulse 92 Resp 22 B/P (MAP) 142/69 (93) Pulse Ox 95 94 O2 Delivery Room Air Capillary Refill : Less Than 3 Seconds Blood Pressure Mean: 93 Progress Note : Time: 09:32 Progress Note Workup was unremarkable. Patient did have significant improvement after DuoNeb treatment. I discussed the patient's case with Dr. Mendez. He recommended a high-dose steroid taper as well as adding Breo. Prescriptions were provided. An appointment was scheduled in his office for July 15. I reinforced the need for complete cessation of smoking. Note for work was provided for today. Information on the smoking cessation class and pulmonary rehabilitation was provided. Diagnostic Imaging Diagonstic Imaging: Xray Plain Films/CT/US/NM/MRI: chest Comments Chest x-ray viewed by me and report reviewed. See report below: NAME: FELA DENSON V MED REC#: [id number] PT STATUS: REG ER : 1955 PHYSICIAN: LULY VASQUEZ MD ADMIT DATE: 07/08/18/ER Draft Date of Exam:07/08/18 CHEST PA/LAT (2 VIEW) INDICATION: Cough and shortness of breath. TIME OF EXAM: 8:32 AM Correlation is made with prior study from 06/23/2018. FINDINGS: The heart size is normal. The pulmonary vascularity is within normal limits. No infiltrate, effusion or pneumothorax is identified. There is some hyperinflation to both lungs suggestive of COPD. IMPRESSION: COPD. No acute cardiopulmonary process is detected. Dictated on workstation # [id number] Dict: 07/08/18 0901 Trans: 07/08/18 0905 KB [id number] Interpreted by: JOHN ROSSI MD Departure Impression Primary Impression: COPD exacerbation Disposition: 01 HOME, SELF-CARE Condition: Improved Departure-Patient Inst. Decision time for Depature: 09:19 Referrals: RANULFO MENDEZ HOLLY R MD (PCP/Family) Primary Care Physician Patient Instructions: Chronic Obstructive Pulmonary Disease (COPD), Including Emphysema Add. Discharge Instructions: Use Spiriva and debris oh daily as scheduled maintenance medications. Use your albuterol inhaler and nebulizer as needed for wheezing and shortness of breath. You have an appointment at Dr. Mendez's office next July 15 at 8:00. Please call his office to confirm appointment time and provide needed information. Return to care if you have worsening symptoms or are not improving as expected. All discharge instructions reviewed with patient and/or family. Voiced understanding. Scripts Prednisone (Prednisone) 20 Mg Tab 20 MG PO DAILY, #22 TAB Take 3 tabs(60mg)daily,decrease by 1/2 tab(10mg)every other day. Prov: LULY VASQUEZ MD 07/08/18 Fluticasone/Vilanterol (Breo Ellipta 100-25 Mcg INH) 1 Each Blst.w.dev 1 EACH IH DAILY, #1 EA Prov: LULY VASQUEZ MD 07/08/18 Work/School Note: Work Release Form Date Seen in the Emergency Department: Jul 08, 2018 Return to Work: Jul 09, 2018 Restrictions: No Restrictions Copy Copies To 1: JO CHANDRA MD Copies To 2: RANULFO MENDEZ JOSHUA T MD Jul 08, 2018 08:05
[2018-07-08 08:19] LABS: BASOPHILS % (AUTO) 0 % (0-10); EOSINOPHILS % (AUTO) 11 % (0-10); HEMATOCRIT 43 % (35-52); HEMOGLOBIN 13.7 G/DL (11.5-16.0); LYMPHOCYTES # (AUTO) 1.7 X 10^3 (1.0-4.0); LYMPHOCYTES % (AUTO) 19 % (12-44); MEAN CORPUSCULAR HEMOGLOBIN 29 PG (25-34); MEAN CORPUSCULAR HGB CONC 32 G/DL (32-36); MEAN CORPUSCULAR VOLUME 92 FL (80-99); MEAN PLATELET VOLUME 9.2 FL (7.4-10.4); MONOCYTES # (AUTO) 0.6 X 10^3 (0.0-1.0); MONOCYTES % (AUTO) 7 % (0-12); NEUTROPHILS # (AUTO) 5.6 X 10^3 (1.8-7.8); NEUTROPHILS % (AUTO) 63 % (42-75); PLATELET COUNT 317 10^3/uL (130-400); RED CELL DISTRIBUTION WIDTH 12.8 % (10.0-14.5)
[2018-07-08 08:40] LABS: ALANINE AMINOTRANSFERASE 12 U/L (0-55); ALBUMIN 4.4 GM/DL (3.2-4.5); ALKALINE PHOSPHATASE 83 U/L (40-136); BILIRUBIN,TOTAL 0.4 MG/DL (0.1-1.0); BUN/CREATININE RATIO 19; CALCIUM 9.4 MG/DL (8.5-10.1); CARBON DIOXIDE 24 MMOL/L (21-32); CHLORIDE 106 MMOL/L (98-107); GFR ESTIMATED > 60; GLUCOSE 106 MG/DL (70-105); SODIUM 140 MMOL/L (135-145)
--- NOTE | 2018-07-08 09:05 | Diagnostic Imaging Report ---
INDICATION: Cough and shortness of breath. TIME OF EXAM: 8:32 AM Correlation is made with prior study from 06/23/2018. FINDINGS: The heart size is normal. The pulmonary vascularity is within normal limits. No infiltrate, effusion or pneumothorax is identified. There is some hyperinflation to both lungs suggestive of COPD. IMPRESSION: COPD. No acute cardiopulmonary process is detected. Dictated by: Dictated on workstation # [id number]
[2018-07-08] MEDS ORDERED: PRD20T PO (09:23)
[2018-07-08] MEDS ORDERED: FLUT1AER IH (09:23)
[2018-07-08 09:36] VITALS: BP 142/69
== END 2018-07-08 09:36 | disposition home or self-care (01) ==
LOC: EDUNIT# 07:42 → ER 07:43
DX: J44.1 Chronic obstructive pulmonary disease with (acute) exacerbation (principal); F41.9 Anxiety disorder, unspecified; Z80.3 Family history of malignant neoplasm of breast; Z82.49 Family history of ischemic heart disease and other diseases of the circulatory system; Z86.718 Personal history of other venous thrombosis and embolism; Z85.038 Personal history of other malignant neoplasm of large intestine; Z87.19 Personal history of other diseases of the digestive system; Z79.51 Long term (current) use of inhaled steroids; Z79.52 Long term (current) use of systemic steroids; Z87.891 Personal history of nicotine dependence; Z90.89 Acquired absence of other organs; Z98.890 Other specified postprocedural states; Z90.49 Acquired absence of other specified parts of digestive tract; Z90.710 Acquired absence of both cervix and uterus; Z98.51 Tubal ligation status; Z85.828 Personal history of other malignant neoplasm of skin; Z87.01 Personal history of pneumonia (recurrent)
CPT/HCPCS: 36415; 71046; 80053; 85025; 86141; 87804; 94640

== ENCOUNTER → 2018-12-13 | Outpatient (CLI) | payer OTHER ==
[~2018-12-13] MED LIST changes: +FLUT1AER IH; +RANI-613 PO; -RANI150T46 PO
--- NOTE | 2018-12-13 10:04 | Diagnostic Imaging Report ---
Indication: Routine screening. Comparison is made with prior mammogram 03/16/2017 and 12/03/2015. 2-D and 3-D bilateral screening mammography was performed with CAD. Both breasts remain heterogeneously dense, limiting the sensitivity of mammography. The parenchymal pattern is stable. No mass or malignant-appearing microcalcifications are seen. The axillae are unremarkable. Impression: BI-RADS category 1 No mammographic features suspicious for malignancy are identified. ACR BI-RADS Category 1: Negative. Result letter will be mailed to the patient. Note: At least 10% of breast cancer is not imaged by mammography. Dictated by: Dictated on workstation # [id number]
== END ==
LOC: RAD 07:42
PROVIDERS: ATTEND Family Medicine
DX: Z12.31 Encounter for screening mammogram for malignant neoplasm of breast (principal)
CPT/HCPCS: 77067

== ENCOUNTER → 2019-12-25 | Outpatient (CLI) | payer OTHER ==
--- NOTE | 2019-12-25 10:54 | Diagnostic Imaging Report ---
INDICATION: Routine screening. Comparison is made with prior mammogram from 12/13/2018 at 03/16/2017. 2-D and 3-D bilateral screening mammography was performed with CAD. Both breasts are heterogeneously dense, limiting the sensitivity of mammography. The parenchymal pattern is stable. No dominant mass or malignant-appearing microcalcifications are seen. Axillae are unremarkable. IMPRESSION: BI-RADS Category 1 No mammographic features suspicious for malignancy are identified. ACR BI-RADS Category 1: Negative. Result letter will be mailed to the patient. Note: At least 10% of breast cancer is not imaged by mammography. Dictated by: Dictated on workstation # [id number]
== END ==
LOC: RAD 07:17
PROVIDERS: ATTEND Family Medicine
DX: Z12.31 Encounter for screening mammogram for malignant neoplasm of breast (principal)
CPT/HCPCS: 77063; 77067

== ENCOUNTER → 2019-12-25 | Outpatient (CLI) | payer OTHER ==
[~2019-12-25] VITALS: Ht 162 cm; Wt 55.0 kg
[~2019-12-25] MED LIST changes: +CATHETER FLUSH 10 ML SYR IV PRN; +REGADENOSON 0.4 MG/5 ML SYR (LEXISCAN) IV ONE
[2019-12-25 18:01] VITALS: BP 128/69
--- NOTE | 2019-12-25 18:01 | Cardiology Stress Test Report ---
Stress Test Report Type of NM Stress Test: Test Type: LEXISCAN 0.4MG/5ML Date of Procedure/Referring: Date of Procedure: Dec 25, 2019 PCP Phoenix Ellison MD Admitting Physician Adeline Aguirre MD Indications: Chest pain Baseline Heart Rate: 58 Baseline Blood Pressure: Blood Pressure Systolic: 128 Blood Pressure Diastolic: 69 Baseline EKG: Baseline EKG: sinus rhythm Summary & Conclusion: Summary: The patient was brought to the stress lab after informed consent was taken. Stress test was performed according to the Lexiscan protocol. 0.4 mg of IV Lexiscan was given. Low-grade exercise was performed. Baseline EKG showed sinus rhythm at 58 bpm and blood pressure 128/69 mmHg. Maximum heart rate of 82 bpm and blood pressure 127/60 mmHg. Patient did not have any chest pain, arrhythmias or ST segment changes during the stress test. 10.81 mCi of Myoview were given for rest imaging and 31.1 mCi of Myoview given for stress imaging. Transient ischemic dilatation score 1.09, EF 62 percent. Normal wall motion. Normal myocardial perfusion imaging during rest and stress. Conclusion: Pharmacological stress test was negative for ischemia. Normal LV function with no wall motion abnormalities. Normal myocardial perfusion imaging during rest and stress. Phoenix ELLISON MD Dec 25, 2019 18:01
== END ==
LOC: CARD 07:27
PROVIDERS: ATTEND Internal Medicine Interventional Cardiology
DX: R07.9 Chest pain, unspecified (principal)
CPT/HCPCS: 78452; 93017; A9502